=== PATIENT | female | born 1985 | race Two or more races ===

== ENCOUNTER → 2020-05-13 15:22 | Outpatient (BNV) | payer OTHER, SELFPAY | PROVIDERS: PCP Internal Medicine; Visit Provider Internal Medicine Medical Oncology | DX: D47.2 Monoclonal gammopathy (principal) | CPT/HCPCS: 99213; 99214 ==

== ENCOUNTER → 2020-06-21 13:48 | Outpatient (BNVA) | payer OTHER, SELFPAY | PROVIDERS: PCP Internal Medicine; Visit Provider Advanced Practice Midwife | DX: Z76.89 Persons encountering health services in other specified circumstances (principal) ==

== ENCOUNTER 2020-10-12 15:39 | Outpatient (REF) | payer OTHER, SELFPAY ==
[2020-10-12 18:24] LABS: C Reactive Protein 0.43 mg/dL (< or = 0.50)
[2020-10-14 13:22] LABS: Transglutaminase Ab IgG 2 U/mL; Transglutaminase IgA 1 U/mL
[2020-10-14 13:46] LABS: H Pylori Breath Test NOT DETECTED (NOT DETECTED)
[2020-10-14 21:46] LABS: Gliadin Deamidated IgA Ab 12 Units; Gliadin Deamidated IgG Ab 2 Units
== END 2020-10-12 15:40 | disposition home or self-care (01) ==
LOC: HO.LAB 15:39
PROVIDERS: PCP Internal Medicine; Visit Provider Nurse Practitioner
DX: K58.0 Irritable bowel syndrome with diarrhea (principal); R10.33 Periumbilical pain; D47.2 Monoclonal gammopathy; E66.9 Obesity, unspecified; E53.8 Deficiency of other specified B group vitamins; E78.00 Pure hypercholesterolemia, unspecified; E55.9 Vitamin D deficiency, unspecified; Z86.19 Personal history of other infectious and parasitic diseases; Z68.29 Body mass index [BMI] 29.0-29.9, adult
CPT/HCPCS: 36415; 83013; 83516; 86140; 99212

== ENCOUNTER 2020-10-21 08:00 | Outpatient (REF) | payer OTHER, SELFPAY ==
--- NOTE | ~2020-10-21 | US_ITS ---
EXAMINATION: US ABDOMEN COMPLETE CLINICAL INFORMATION: Irritable bowel syndrome with diarrhea, abdominal pain. COMPARISON: None TECHNIQUE: Real-time imaging of the abdominal viscera. FINDINGS: PANCREAS: The visualized head and body of the pancreas appears unremarkable. Remainder of the pancreas is obscured by bowel gas. ABDOMINAL AORTA: The proximal, mid, and distal segments are normal in caliber. INFERIOR VENA CAVA: Visualized portions are normal. LIVER: Diffuse increased parenchymal echogenicity. The liver is normal in size. The liver contour is normal. No focal hepatic lesion. There is no intrahepatic biliary duct dilatation seen. GALLBLADDER: Normal. The gallbladder is physiologically distended without evidence of stones, sludge, polyps, wall thickening or pericholecystic fluid. COMMON BILE DUCT: Normal in caliber measuring 0.3 cm in diameter. RIGHT KIDNEY: Normal. No hydronephrosis. No renal calculi or focal parenchymal lesions. The kidney measures 10.1 cm in maximum dimension. LEFT KIDNEY: Normal. No hydronephrosis. No renal calculi or focal parenchymal lesions. The kidney measures 9.8 cm in maximum dimension. SPLEEN: Normal. The spleen measures 10.9 cm in maximum dimension. FREE FLUID: None. US/US abdomen complete IMPRESSION: 1. There is generalized increase in hepatic echotexture, consistent with fatty infiltration or hepatocellular disease. Please correlate clinically. No focal hepatic mass or intrahepatic biliary duct dilatation is seen. 2. Otherwise unremarkable study.
== END 2020-10-21 08:01 | disposition home or self-care (01) ==
LOC: HO.US 08:00
PROVIDERS: PCP Internal Medicine; Visit Provider Nurse Practitioner
DX: K58.0 Irritable bowel syndrome with diarrhea (principal); R10.33 Periumbilical pain
CPT/HCPCS: 76700

== ENCOUNTER → 2020-11-08 09:18 | Outpatient (BNVA) | payer OTHER, SELFPAY | PROVIDERS: PCP Internal Medicine; Visit Provider Nurse Practitioner ==

== ENCOUNTER 2021-06-30 10:31 | Outpatient (REF) | payer OTHER, SELFPAY ==
[2021-06-30 12:21] LABS: Syphilis Screen Nonreactive (Nonreactive)
[2021-06-30 12:25] LABS: HBc Num1 0.12 S/CO (0.00-0.79); Hepatitis B Core Antibody Nonreactive (Nonreactive); ~HepC Num1 0.22 S/CO (0.00-0.79); ~Hepatitis C Antibody Nonreactive (Nonreactive)
[2021-06-30 12:56] LABS: HIV AB/AG Nonreactive (Nonreactive); HIV Num 1 0.07 S/CO (0.00-0.99)
[2021-06-30 16:34] LABS: CT PCR NOT DETECTED (Not Detect.); NG PCR NOT DETECTED (Not Detect.)
[2021-07-01 16:00] LABS: BV Int Neg Control Negative (Negative); BV Int Pos Control Positive (Positive)
== END 2021-06-30 10:32 | disposition home or self-care (01) ==
LOC: HO.LAB 10:31
PROVIDERS: PCP Internal Medicine; Visit Provider Advanced Practice Midwife
DX: Z01.411 Encounter for gynecological examination (general) (routine) with abnormal findings (principal); Z11.4 Encounter for screening for human immunodeficiency virus [HIV]; N89.8 Other specified noninflammatory disorders of vagina; Z20.2 Contact with and (suspected) exposure to infections with a predominantly sexual mode of transmission; F43.9 Reaction to severe stress, unspecified
CPT/HCPCS: 36415; 86704; 86780; 86803; 87389; 87480; 87491; 87510; 87591; 87660

== ENCOUNTER 2021-07-25 14:40 | Outpatient (REF) | payer OTHER, SELFPAY ==
[2021-07-25 15:45] LABS: MANUAL DIFF FLAG NO
[2021-07-25 16:00] LABS: Basophils Percent Auto 0.4 % (0-2); Eosinophils Absolute Auto 0.1 X10*3/uL (0.0-0.4); Eosinophils Percent Auto 0.6 % (0-4); Hemoglobin 13.6 g/dl (12.0-16.0); Imm Gran Abs Auto 0.02 X10*3/uL (0.00-0.03); Imm Gran Pct Auto 0.2 % (0.0-0.4); Lymphocytes Absolute Auto 3.6 X10*3/uL (1.2-4.9); Lymphocytes Percent Auto 35.7 % (20-40); Mean Corpuscular HGB Conc 33.2 g/dl (31.0-35.0); Mean Corpuscular Volume 90.3 fL (80.0-98.0); Mean Platelet Volume 10.5 fL (9.4-12.3); Monocytes Absolute Auto 0.5 X10*3/uL (0.1-1.2); Monocytes Percent Auto 4.6 % (2-11); Neutrophils Absolute Auto 5.9 x10*3/uL (2.0-8.3); Neutrophils Percent Auto 58.5 % (45-73); Platelet Count 311 X10*3/uL (160-400); Red Blood Count 4.54 X10*6/uL (4.20-5.50); Red Cell Distribution Width 12.4 % (11.0-16.0); White Blood Count 10.1 X10*3/uL (4.8-10.8)
[2021-07-25 16:28] LABS: Alanine Aminotransferase 12 U/L (0-31); Albumin Level 4.3 g/dL (3.5-5.0); Alkaline Phosphatase 72 U/L (39-117); Aspartate Amino Transferase 15 U/L (5-31); Bilirubin Direct 0.3 mg/dL (0.0-0.5); Bilirubin Total 0.7 mg/dL (0.0-1.0); Gamma Glutamyl Transpeptidase 21 U/L (7-33); Total Protein 8.5 g/dL (6.5-8.0)
[2021-07-25 16:48] LABS: Ferritin 31 ng/mL (10-122)
[2021-07-26 13:11] LABS: Anti Nuclear Antibody Screen NEGATIVE (NEGATIVE)
[2021-07-27 15:01] LABS: Mitochondrial Antibodies NEGATIVE (NEGATIVE)
[2021-07-28 10:55] LABS: Alpha Fetoprotein 1.4 ng/mL
[2021-07-29 23:31] LABS: Smooth Muscle Antibody <20 U (<20)
== END 2021-07-25 14:41 | disposition home or self-care (01) ==
LOC: HO.LAB 14:40
PROVIDERS: PCP Internal Medicine; Referring Provider Internal Medicine; Visit Provider Nurse Practitioner
DX: K75.81 Nonalcoholic steatohepatitis (NASH) (principal); K58.0 Irritable bowel syndrome with diarrhea; R10.33 Periumbilical pain
CPT/HCPCS: 36415; 80076; 82105; 82728; 82977; 85025; 86015; 86038; 86039; 86255; 86256; 99212

== ENCOUNTER 2021-09-18 13:40 | Outpatient (REF) | payer OTHER, SELFPAY ==
--- NOTE | 2021-09-18 13:49 | ECG_ITS ---
Test Reason : PREOP Blood Pressure : / mmHG Vent. Rate : 085 BPM Atrial Rate : 085 BPM P-R Int : 154 ms QRS Dur : 086 ms QT Int : 364 ms P-R-T Axes : 059 021 048 degrees QTc Int : 433 ms Normal sinus rhythm Normal ECG No previous ECGs available Referred By: Sancho Jc Electronically Signed By:DASHA YUN
[2021-09-18 13:51] LABS: MANUAL DIFF FLAG NO
[2021-09-18 14:14] LABS: Basophils Percent Auto 0.4 % (0-2); Eosinophils Percent Auto 0.2 % (0-4); Hematocrit 40.6 % (37.0-47.0); Hemoglobin 13.4 g/dl (12.0-16.0); Imm Gran Abs Auto 0.05 X10*3/uL (0.00-0.03); Imm Gran Pct Auto 0.5 % (0.0-0.4); Lymphocytes Absolute Auto 3.1 X10*3/uL (1.2-4.9); Lymphocytes Percent Auto 28.1 % (20-40); Mean Platelet Volume 10.9 fL (9.4-12.3); Monocytes Absolute Auto 0.6 X10*3/uL (0.1-1.2); Monocytes Percent Auto 5.3 % (2-11); Neutrophils Absolute Auto 7.2 x10*3/uL (2.0-8.3); Neutrophils Percent Auto 65.5 % (45-73); Platelet Count 281 X10*3/uL (160-400); Red Blood Count 4.46 X10*6/uL (4.20-5.50); Red Cell Distribution Width 12.3 % (11.0-16.0); Retic HGB Equivalent 33.4 pg (30.0-35.0); Reticulocyte Percent 1.6 % (0.5-1.8); White Blood Count 10.9 X10*3/uL (4.8-10.8)
[2021-09-18 14:17] LABS: Prothrombin Time 11.9 SEC (9.9-13.0)
[2021-09-18 14:45] LABS: Alanine Aminotransferase 11 U/L (0-31); Albumin Level 4.3 g/dL (3.5-5.0); Alkaline Phosphatase 76 U/L (39-117); Anion Gap 12 (12-20); Aspartate Amino Transferase 12 U/L (5-31); Bilirubin Total 1.4 mg/dL (0.0-1.0); Blood Urea Nitrogen 10 mg/dL (9-16); Calcium 9.6 mg/dL (8.4-10.2); Carbon Dioxide 25 mmol/L (22-29); Chloride 102 mmol/L (96-108); Cholesterol 195 mg/dL; Estimated Glomerular Filt Rate > 60; Glucose Random 86 mg/dL (60-115); HDL Cholesterol 42 mg/dL; Iron 58 mcg/dL (30-160); LDL Cholesterol Calculated 132 mg/dl; Percent Iron Saturation 16 % (15-50); Potassium 4.4 mmol/L (3.3-5.1); Sodium 135 mmol/L (135-145); Total Iron Binding Capacity 359 mcg/dL (228-428); Total Protein 8.4 g/dL (6.5-8.0); Triglycerides 109 mg/dL; Unsaturated Iron Binding 301 ug/dL
[2021-09-18 15:08] LABS: Ferritin 29 ng/mL (10-122); Free T4 (Free Thyroxine) 0.94 ng/dL (0.71-1.85); HCG Quantitative < 2 mIU/mL; Thyroid Stimulating Hormone 2.21 uIU/mL (0.32-4.0); Vitamin D 25-OH Total 36.3 ng/mL (>30)
[2021-09-18 15:25] LABS: Folate 19.3 ng/mL (> or = 4.0); Vitamin B12 604 pg/mL (200-900)
== END 2021-09-18 13:41 | disposition home or self-care (01) ==
LOC: HO.LAB 13:40
PROVIDERS: PCP Internal Medicine; Visit Provider Internal Medicine
DX: Z01.818 Encounter for other preprocedural examination (principal); E78.00 Pure hypercholesterolemia, unspecified; D47.2 Monoclonal gammopathy
CPT/HCPCS: 36415; 80053; 80061; 82306; 82607; 82728; 82746; 83540; 84439; 84443; 84702; 85025; 85045; 85610; 85730; 93005

== ENCOUNTER 2021-09-19 09:00 | Outpatient (REF) | payer OTHER, SELFPAY ==
--- NOTE | ~2021-09-19 | US_ITS ---
EXAMINATION: US COMPLETE ABDOMEN WITH LIVER ELASTOGRAPHY CLINICAL INFORMATION: FINLEY COMPARISON: Previous pelvic ultrasound September 2020 TECHNIQUE: Real-time imaging of the abdominal viscera. Noninvasive ultrasound liver fibrosis assessment is performed using Georgette ElastPQ point quantification shear wave elastography (2D-SWE) with a C5-2 MHz transducer. Multiple elastography samples are obtained. FINDINGS: PANCREAS: Normal. ABDOMINAL AORTA: The proximal, middle, and distal aortic segments are normal in caliber. INFERIOR VENA CAVA: Visualized portions are normal. LIVER: The liver demonstrates normal size, contour and echogenicity. There is a 1 x 1.3 x 1.1 cm cyst high in the left lobe. No other focal lesion or intrahepatic biliary duct dilatation. The right lobe measures 15.9 cm in length. The left lobe measures 12 cm in length. Portal flow is normal/hepatopedal Shear wave liver elastography median stiffness is 1.5 m/s (reference: normal median stiffness is 1.3 m/s or less). IQR/median stiffness to assess sampling precision is 0.08 (reference: good quality data set is IQR/median stiffness of 0.15 or less). GALLBLADDER: Normal. The gallbladder is physiologically distended without evidence of stones, sludge, polyps, wall thickening or pericholecystic fluid. COMMON BILE DUCT: Normal in caliber measuring 0.3 cm in diameter. RIGHT KIDNEY: Normal. No hydronephrosis. No renal calculi or focal parenchymal lesions. The kidney measures 10 cm in maximum dimension. LEFT KIDNEY: Normal. No hydronephrosis. No renal calculi or focal parenchymal lesions. The kidney measures 10.4 cm in maximum dimension. SPLEEN: There are 2 small echogenic lesions in the spleen measuring 9 x 9 x 12 mm and 10 x 9 x 7 mm. These were not appreciated on previous exam. Appearance is questionable for small hemangiomas. The spleen measures 10.7 cm in maximum dimension. FREE FLUID: None. US/US abdomen comp w elastography IMPRESSION: 1. Impression: Small liver cyst. 2 small hyperechoic splenic lesions questionable for hemangiomas. 2. Liver elastography: Adequate liver sampling. In the absence of other known clinical signs, rules out compensated advanced chronic liver disease. REFERENCE: Society of Radiologists in Ultrasound Liver Stiffness Thresholds (2020): LIVER STIFFNESS THRESHOLDS: *Liver Stiffness equal or less than 1.3 m/s: High probability of being normal. *Liver Stiffness less than 1.7 m/s: In the absence of other known clinical signs, rules out compensated advanced chronic liver disease. *Liver Stiffness 1.7-2.1 m/s: Suggestive of compensated advanced chronic liver disease but need further test for confirmation. *Liver Stiffness over 2.1 m/s: Rules in compensated advanced chronic liver disease. *Liver Stiffness over 2.4 m/s: Suggestive of clinically significant portal hypertension. QUALITY OF DATA SET: *IQR/Median value equal or less than 0.15 implies a quality data set. *IQR/Median value over 0.15 implies a poor quality data set. SIGNIFICANT CHANGE FROM PRIOR EXAM: Significant change if liver stiffness measurement is 10% or greater from prior exam. OTHER CONSIDERATIONS: The stage of liver fibrosis may be overestimated in the setting of acute hepatitis, liver inflammation, elevated liver function tests, hepatic vascular congestion, obstructive cholestasis, non-fasting state, and infiltrative diseases such as amyloidosis and lymphoma. In some patients with NAFLD, the liver stiffness thresholds for compensated advanced chronic liver disease may be lower. In causes other than viral hepatitis and NAFLD, liver stiffness thresholds are not well established.
== END 2021-09-19 09:01 | disposition home or self-care (01) ==
LOC: HO.US 09:00
PROVIDERS: Visit Provider Nurse Practitioner
DX: M75.81 Other shoulder lesions, right shoulder (principal)
CPT/HCPCS: 76705; 76981

== ENCOUNTER → 2021-09-26 13:30 | Outpatient (BNVA) | payer OTHER, SELFPAY | PROVIDERS: PCP Internal Medicine; Referring Provider Internal Medicine; Visit Provider Nurse Practitioner | DX: K75.81 Nonalcoholic steatohepatitis (NASH) (principal); E80.4 Gilbert syndrome | CPT/HCPCS: 99212 ==

== ENCOUNTER 2022-04-04 12:54 | Outpatient (REF) | payer OTHER, SELFPAY ==
[2022-04-04 13:15] LABS: MANUAL DIFF FLAG NO
[2022-04-04 13:59] LABS: Immature Retic Fraction 4.5 % (3.0-15.9); Retic HGB Equivalent 34.5 pg (30.0-35.0); Reticulocyte Percent 1.4 % (0.5-1.8); Reticulocytes Absolute 0.064 X10*6/uL (0.026-0.095)
[2022-04-04 14:00] LABS: Basophils Percent Auto 0.4 % (0-2); Eosinophils Percent Auto 0.4 % (0-4); Hematocrit 40.2 % (37.0-47.0); Hemoglobin 13.2 g/dl (12.0-16.0); Imm Gran Abs Auto 0.02 X10*3/uL (0.00-0.03); Imm Gran Pct Auto 0.3 % (0.0-0.4); Lymphocytes Absolute Auto 2.4 X10*3/uL (1.2-4.9); Mean Corpuscular HGB Conc 32.8 g/dl (31.0-35.0); Mean Corpuscular Hemoglobin 28.9 pg (27.0-33.0); Mean Corpuscular Volume 88.2 fL (80.0-98.0); Mean Platelet Volume 10.6 fL (9.4-12.3); Monocytes Absolute Auto 0.3 X10*3/uL (0.1-1.2); Monocytes Percent Auto 3.6 % (2-11); Neutrophils Percent Auto 64.3 % (45-73); Platelet Count 300 X10*3/uL (160-400); Red Blood Count 4.56 X10*6/uL (4.20-5.50); Red Cell Distribution Width 12.8 % (11.0-16.0); White Blood Count 7.7 X10*3/uL (4.8-10.8)
[2022-04-04 14:11] LABS: Alanine Aminotransferase 17 U/L (0-31); Albumin Level 3.9 g/dL (3.5-5.0); Alkaline Phosphatase 78 U/L (39-117); Anion Gap 12 (12-20); Aspartate Amino Transferase 18 U/L (5-31); Bilirubin Total 0.5 mg/dL (0.0-1.0); Blood Urea Nitrogen 9 mg/dL (9-16); Calcium 9.2 mg/dL (8.4-10.2); Carbon Dioxide 28 mmol/L (22-29); Chloride 102 mmol/L (96-108); Cholesterol 179 mg/dL; Estimated Glomerular Filt Rate > 60; Glucose Random 90 mg/dL (60-115); HDL Cholesterol 41 mg/dL; Iron 44 mcg/dL (30-160); LDL Cholesterol Calculated 119 mg/dl; Percent Iron Saturation 13 % (15-50); Potassium 4.4 mmol/L (3.3-5.1); Sodium 138 mmol/L (135-145); Total Iron Binding Capacity 333 mcg/dL (228-428); Total Protein 8.2 g/dL (6.5-8.0); Triglycerides 95 mg/dL; Unsaturated Iron Binding 289 ug/dL
[2022-04-04 14:14] LABS: Alanine Aminotransferase 20 U/L (0-31); Alkaline Phosphatase 78 U/L (39-117); Anion Gap 14 (12-20); Aspartate Amino Transferase 21 U/L (5-31); Bilirubin Total 0.4 mg/dL (0.0-1.0); Blood Urea Nitrogen 10 mg/dL (9-16); Calcium 9.1 mg/dL (8.4-10.2); Carbon Dioxide 27 mmol/L (22-29); Chloride 101 mmol/L (96-108); Estimated Glomerular Filt Rate > 60; Glucose Random 90 mg/dL (60-115); Potassium 4.1 mmol/L (3.3-5.1); Sodium 138 mmol/L (135-145); Total Protein 8.3 g/dL (6.5-8.0)
[2022-04-04 14:34] LABS: Ferritin 26 ng/mL (10-122); Free T4 (Free Thyroxine) 0.97 ng/dL (0.71-1.85); Thyroid Stimulating Hormone 1.65 uIU/mL (0.32-4.0)
[2022-04-04 14:49] LABS: Folate 17.9 ng/mL (> or = 4.0); Vitamin B12 558 pg/mL (200-900)
[2022-04-09 13:37] LABS: Kappa Light Chain, Free Serum 63.7 mg/L (3.3-19.4); Kappa/Lambda Lt Ch Free Ratio 2.79 (0.26-1.65); Lambda Light Chain, Free Serum 22.8 mg/L (5.7-26.3)
[2022-04-11 10:26] LABS: IgA 278 mg/dL (47-310); IgG 2730 mg/dL (600-1640); IgM 106 mg/dL (50-300)
== END 2022-04-04 12:55 | disposition home or self-care (01) ==
LOC: HO.LAB 12:54
PROVIDERS: Internal Medicine Medical Oncology; PCP Internal Medicine; Visit Provider Internal Medicine
DX: N92.6 Irregular menstruation, unspecified (principal); E78.00 Pure hypercholesterolemia, unspecified; D47.2 Monoclonal gammopathy
CPT/HCPCS: 36415; 80053; 80061; 82607; 82728; 82746; 82784; 83521; 83540; 84439; 84443; 85025; 85045; 86334

== ENCOUNTER 2022-07-03 14:59 | Outpatient (REF) | payer OTHER, SELFPAY ==
[2022-07-10 16:30] LABS: HPV mRNA E6/E7 rflx Not Detected (Not Detected)
== END 2022-07-03 15:00 | disposition home or self-care (01) ==
LOC: HO.LNP 14:59
PROVIDERS: PCP Internal Medicine; Visit Provider Advanced Practice Midwife
DX: Z01.419 Encounter for gynecological examination (general) (routine) without abnormal findings (principal); Z11.51 Encounter for screening for human papillomavirus (HPV)
CPT/HCPCS: 87624; 88142

== ENCOUNTER 2022-07-03 16:05 | Outpatient (REF) | payer OTHER, SELFPAY ==
[2022-07-04 06:43] LABS: Syphilis Screen Nonreactive (Nonreactive)
[2022-07-04 08:05] LABS: HBc Num1 0.15 S/CO (0.00-0.79); HIV AB/AG Nonreactive (Nonreactive); HIV Num 1 0.06 S/CO (0.00-0.99); Hepatitis B Core Antibody Nonreactive (Nonreactive); ~HepC Num1 0.33 S/CO (0.00-0.79); ~Hepatitis C Antibody Nonreactive (Nonreactive)
[2022-07-04 09:32] LABS: CT PCR NOT DETECTED (Not Detect.); NG PCR NOT DETECTED (Not Detect.)
== END 2022-07-03 16:06 | disposition home or self-care (01) ==
LOC: HO.LAB 16:05
PROVIDERS: PCP Internal Medicine; Visit Provider Advanced Practice Midwife
DX: Z11.4 Encounter for screening for human immunodeficiency virus [HIV] (principal); Z11.3 Encounter for screening for infections with a predominantly sexual mode of transmission; Z20.2 Contact with and (suspected) exposure to infections with a predominantly sexual mode of transmission
CPT/HCPCS: 0353U; 36415; 86704; 86780; 86803; 87389

== ENCOUNTER 2022-10-26 08:42 | Outpatient (REF) | payer OTHER, SELFPAY ==
[2022-10-26 13:40] LABS: CT PCR NOT DETECTED (Not Detect.); NG PCR NOT DETECTED (Not Detect.)
[2022-10-27 14:19] LABS: BV Int Neg Control Negative (Negative); BV Int Pos Control Positive (Positive)
== END 2022-10-26 08:43 | disposition home or self-care (01) ==
LOC: HO.LNP 08:42
PROVIDERS: PCP Internal Medicine; Visit Provider Advanced Practice Midwife
DX: Z20.2 Contact with and (suspected) exposure to infections with a predominantly sexual mode of transmission (principal)
CPT/HCPCS: 0353U; 87480; 87510; 87660; 99212

== ENCOUNTER 2022-12-13 17:00 | Outpatient (RCR) | payer OTHER, SELFPAY ==
--- NOTE | 2022-10-02 18:08 | MHC.PT.EP ---
[facility] [place] [facility] [place] [facility] [place] [facility] [address] Leah Hicks [address] [phone] F: [phone] F: [phone] F: [phone] F: [phone] Physical Therapy Plan of Care Date of Evaluation: Date of Surgery: Diagnosis: low back pain Assessment: Patient is a 37 y.o. female who is referred to PT by Dr. Sancho Jc MD, with Dx of low back pain. PT diagnosis is low back pain and thoracic pain from poos postures and muscle imbalances. Patient impairments include pain, limited ROM, weakness, poor posture and positioning. Patient current functional limitations are prolonged standing to do dishes, unable to lie supine, prolonged sitting, cleaning, bending down, driving. Patient will benefit from skilled PT to address aforementioned impairments and functional limitations to meet established goals. Frequency and Duration: The patient will be seen 2x/week for 4 weeks Short Term Goals: 2 weeks Patient demonstrates consistency and independence with HEP to self manage symptoms. Patient presents with self correction of poor posture without cues to reduce pain 2/10. Jail Goals: 4 weeks Patient presents with increased lumbar extensino 20 degrees to be able to stand to do dishes. Patient presents with incrased middle trapezius strength 4/5 to be able to sit for prolonged time. Treatment Plan: Modalities to reduce pain, spasms and effusion. Manual therapy to restore motion and function. Therapeutic exercise to improve strength and flexibility. Neuromuscular re-education for posture and balance. Therapeutic activities to return to functional activities of daily living. Electronically signed by: Anila Ansari, PT, DPT Please sign and return to therapist. Thank you for your referral.
--- NOTE | 2023-01-18 13:38 | MHC.PT.DC ---
[facility] [place] [facility] [place] Office [place] Office [address] Leah Hicks [address] [phone] F: [phone] F: [phone] F: [phone] F: [phone] Physical Therapy Discharge Report Diagnosis: low back pain Date of Surgery: Date of Evaluation: 10/02/22 Date of Discharge: 01/18/23 Treatments to Date: 8 Cancellations to Date: 3 No Shows to Date: 2 Discharge Status: Improved Function Independent with HEP Patient Elected to Stop Discharge Summary: Patient is independent with HEP and showed improvement in her symptoms with PT sessions but ceased attending on her own accord. Electronically signed by: Anila Ansari, PT, DPT Please sign and return to therapist. Thank you for your referral.
== END 2023-01-18 13:38 | disposition home or self-care (01) ==
LOC: HO.PT 17:00
PROVIDERS: PCP Internal Medicine; Visit Provider Internal Medicine
DX: M54.50 Low back pain, unspecified (principal)
CPT/HCPCS: 97110; 97140; 97161; 97530

== ENCOUNTER 2023-04-10 09:53 | Outpatient (AMB) | payer OTHER, SELFPAY ==
--- NOTE | 2023-04-10 10:05 | MHC.PC.OV ---
Vital Signs 04/10/23 10:07 Height 5 ft 5 in Weight 165 lb BMI 27.5 BP 122/78 Blood Pressure Location Lt brachial Position Sitting Pulse 83 Pulse Source Pulse Oximeter Pulse Oximetry (%) 99 Oxygen Delivery Method Room Air Intake Visit Reasons: Urinating too much and always feeling tired. Intake Note: patient here for frequent urination mostly at night, tiredness Chief Green Officer Required: No Accompanied by: Self / Same As Patient Allergies No Known Allergies Allergy (Verified 04/10/23 10:13) Tobacco use date assessed: 07/05/22 Dental Screening Dental Screen Date: 04/10/23 Did you have a dental visit in the last 12 months?: Yes Did you have a dental problem in the last 6 months where you did not have access to dental care?: No Was dental information given to patient?: Patient has dentist HPI Urinating too much and always feeling tired. 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 Patient had some low back pain and sent for physical therapy. Pap smear is up-to-date patient comes in for an acute problem frequency 4 x a night, no burning , . tired this has been going on for a month, no thristy a lot, feels dry, no cough, no bowel symptoms. , no cogested, runny nose, patient has tonsillar hypertrophy and occasional have tonsil stones and wants to have ear nose throat referral otherwise with feeling tiredness would like to have some workup on blood count as well as iron. She does have pink palpebral conjunctiva. [facility] Medical History B12 deficiency Cervical dysplasia MARCO II (cervical intraepithelial neoplasia II) Condyloma Exposure to chlamydia Hypercholesterolemia Insomnia Overweight (BMI 25.0-29.9) Rheumatoid factor positive Vitamin D deficiency Surgical History H/O cosmetic surgery Hx of tubal ligation History of loop electrical excision procedure (LEEP) Family History Father Liver cancer Hep C w/o coma, chronic Diabetes mellitus Family history of thyroid problem Paternal Aunt Breast cancer Maternal Grandmother Myocardial infarct Mother Osteoarthritis Gastritis Family/Other Breast cancer Social History Household Members: Children Housing: Apartment Are you a primary careers adviser to a significant other at home: No Do you presently have visiting nurse or other home services: No Alcohol intake: former Patient Tobacco Use Status: Never used Tobacco e-Cigarette/Vaping Use: Never Used Second Hand Smoke Exposure: No service: No Current occupational status: employed 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 Tommy Berg, Monica Ballesteros, Chris Nagy and colleagues, with an educational chepe from [employer]. Physical exam (Primary Care) Vital Signs: Last Vital Signs Pulse 83 04/10/23 10:07 BP 122/78 04/10/23 10:07 Pulse Ox 99 04/10/23 10:07 Oxygen Delivery Method Room Air 04/10/23 10:07 BMI result Body Mass Index 27.5 Tobacco/Smoking Status: Tobacco use Status Tobacco use date assessed 07/05/22 04/10/23 10:05 Patient Tobacco Use Status Never used Tobacco 04/10/23 10:05 e-Cigarette/Vaping Use Never Used 04/10/23 10:05 Thrive Assessment: Date of Thrive Assessment Date Thrive assessed 07/05/22 04/10/23 10:05 Const General: alert; No acute distress Eyes Conjunctivae: conjunctivae normal Resp Auscultation: clear to auscultation bilaterally Cardio Rate: regular rate Rhythm: regular rhythm GI Inspection: Yes normal to inspection Extrem General: Yes normal to inspection and No edema Office Procedures Flu Questionnaire Does the patient have a severe egg allergy?: No Does the patient have severe life threatening allergies?: No Does the patient have a fever or illness today?: No Has the patient ever had Guillain-Roll Syndrome?: No Has the patient ever had any past reaction to a flu shot?: No Results AMB Urinalysis, Automated UA Leukoctes 0 Anusha/uL Last Edit by DESTIN Real on 04/10/23 10:23 UA Nitrite Negative Last Edit by Salena Ellis, EDYA on 04/10/23 10:23 UA Urobilinogen 0.2 mg/dL Last Edit by Salena Ellis, RMA on 04/10/23 10:23 UA Protein 0 mg/dL Last Edit by Salena Ellis, RMA on 04/10/23 10:23 UA pH 6.0 Last Edit by Salena Ellis, RMA on 04/10/23 10:23 UA Blood 0 Hemanth/uL Last Edit by Salena Ellis, RMA on 04/10/23 10:23 UA Specific [place] 1.025 Last Edit by Salena Ellis, RMA on 04/10/23 10:23 UA Ketone Negative Last Edit by Salena Ellis, RMA on 04/10/23 10:23 UA Bilirubin 0 mg/dL Last Edit by Salena Ellis, RMA on 04/10/23 10:23 UA Glucose 0 mg/dL Last Edit by Salena Ellis, EDYA on 04/10/23 10:23 Immunizations flu vacc [id number] 6mos up(PF) 60 mcg(15 mcgx4)/0.5 mL IM syringe Performing Provider: Sancho Jc MD Performing Location: [facility] Administered by: DESTIN Real on 04/10/23 10:20 Dose Route Admin Location Dispensed Lot Number Expiration Date NDC Rail Signal Designer 0.5 mL IM Left Deltoid 0.5 mL [id number] 12/22/23 [id number] [employer] VIS Given Date VIS Provided VIS Publication Date 04/10/23 Single Vaccine 21 Eligibility Eligibility Date Funding Source Not VFC Eligible 04/10/23 Private Results Reviewed Results Reviewed: Laboratory Last Values Urine pH (Auto) 6.0 04/10/23 10:16 Specific [place] (Auto) 1.025 04/10/23 10:16 Urine Protein (Auto) 0 mg/dL 04/10/23 10:16 Glucose (UA)(Auto) 0 mg/dL 04/10/23 10:16 Urine Ketones (Auto) Negative 04/10/23 10:16 Urine Blood (Auto) 0 Hemanth/uL 04/10/23 10:16 Urine Nitrite (Auto) Negative 04/10/23 10:16 Urine Bilirubin (Auto) 0 mg/dL 04/10/23 10:16 Urine Urobilinogen (Auto) 0.2 mg/dL 04/10/23 10:16 Leukocyte Esterase (Auto) 0 Anusha/uL 04/10/23 10:16 Assessment and Plan Assessment & Plan (1) Frequency of micturition: Code(s): R35.0 - Frequency of micturition Plan: Urinalysis results came back negative. (2) Overweight (BMI 25.0-29.9): Code(s): E66.3 - Overweight Plan: Diet and exercise (3) Tiredness: Code(s): R53.83 - Other fatigue Plan: Workup requested (4) Tonsillar hypertrophy: Code(s): J35.1 - Hypertrophy of tonsils Plan: Ear nose and throat referral done Orders: Orders Free T4 (Free Thyroxine) Today R35.0 - Frequency of micturition Lipid Panel Today E78.00 - Pure hypercholesterolemia, unspecified, R35.0 - Frequency of micturition Reticulocyte Count Today R35.0 - Frequency of micturition C Reactive Protein Today R35.0 - Frequency of micturition Hemoglobin A1c Today R35.0 - Frequency of micturition Vitamin D 25-OH Total Today E78.00 - Pure hypercholesterolemia, unspecified AMB Urinalysis Automated Today R35.0 - Frequency of micturition Influenza [id number] Immunization Today Z23 - Encounter for immunization Comprehensive Met. Panel Today R35.0 - Frequency of micturition Complete Blood Count Auto Diff Today R35.0 - Frequency of micturition Ferritin Today R35.0 - Frequency of micturition Thyroid Stimulating Hormone Today R35.0 - Frequency of micturition Vitamin B12 and Folate Today R35.0 - Frequency of micturition IRON PROFILE Today R35.0 - Frequency of micturition Erythrocyte Sedimentation Rate Today R35.0 - Frequency of micturition Referrals Ear/Nose/Throat Referral J35.1 - Hypertrophy of tonsils Coding Level of Care Code Est Pt Level 4 (03389) Diagnoses Frequency of micturition R35.0 Overweight (BMI 25.0-29.9) E66.3 Tiredness R53.83 Tonsillar hypertrophy J35.1
[2023-04-10 10:07] VITALS: BP 122/78; PULSE 83; O2SAT 99; BMI 27.5
== END 2023-04-10 10:44 | disposition home or self-care (01) ==
PROVIDERS: PCP Internal Medicine; Visit Provider Internal Medicine
DX: Z23 Encounter for immunization (principal); R35.0 Frequency of micturition; R53.83 Other fatigue; J35.1 Hypertrophy of tonsils; E66.3 Overweight
CPT/HCPCS: 81003; 90471; 90686; 99214

== ENCOUNTER 2023-04-10 10:51 | Outpatient (REF) | payer OTHER, SELFPAY ==
[2023-04-10 11:11] LABS: MANUAL DIFF FLAG NO
[2023-04-10 11:33] LABS: Basophils Percent Auto 0.4 % (0-2); Eosinophils Absolute Auto 0.1 X10*3/uL (0.0-0.4); Eosinophils Percent Auto 0.6 % (0-4); Hematocrit 39.5 % (37.0-47.0); Hemoglobin 13.3 g/dl (12.0-16.0); Imm Gran Abs Auto 0.03 X10*3/uL (0.00-0.03); Imm Gran Pct Auto 0.4 % (0.0-0.4); Immature Retic Fraction 6.5 % (3.0-15.9); Lymphocytes Absolute Auto 2.3 X10*3/uL (1.2-4.9); Lymphocytes Percent Auto 27.1 % (20-40); Mean Corpuscular HGB Conc 33.7 g/dl (31.0-35.0); Mean Platelet Volume 11.2 fL (9.4-12.3); Monocytes Absolute Auto 0.4 X10*3/uL (0.1-1.2); Monocytes Percent Auto 4.4 % (2-11); Neutrophils Absolute Auto 5.8 x10*3/uL (2.0-8.3); Neutrophils Percent Auto 67.1 % (45-73); Platelet Count 266 X10*3/uL (160-400); Red Blood Count 4.44 X10*6/uL (4.20-5.50); Red Cell Distribution Width 12.1 % (11.0-16.0); Retic HGB Equivalent 34.9 pg (30.0-35.0); Reticulocyte Percent 1.4 % (0.5-1.8); Reticulocytes Absolute 0.064 X10*6/uL (0.026-0.095); White Blood Count 8.6 X10*3/uL (4.8-10.8)
[2023-04-10 11:35] LABS: Estimated Average Glucose 100 mg/dL; Hemoglobin A1c % 5.1 % (<6.0)
[2023-04-10 12:15] LABS: Alanine Aminotransferase 14 U/L (0-31); Albumin Level 3.8 g/dL (3.5-5.0); Alkaline Phosphatase 69 U/L (39-117); Anion Gap 12 (12-20); Aspartate Amino Transferase 18 U/L (5-31); Bilirubin Total 0.9 mg/dL (0.0-1.0); Blood Urea Nitrogen 11 mg/dL (9-16); C Reactive Protein 0.15 mg/dL (< or = 0.50); Calcium 9.2 mg/dL (8.4-10.2); Carbon Dioxide 27 mmol/L (22-29); Chloride 101 mmol/L (96-108); Cholesterol 184 mg/dL (<200); Estimated Glomerular Filt Rate > 60; Glucose Random 94 mg/dL (60-115); HDL Cholesterol 39 mg/dL (>40); Iron 108 mcg/dL (30-160); LDL Cholesterol Calculated 119 mg/dL (<100); Percent Iron Saturation 38 % (15-50); Potassium 4.4 mmol/L (3.3-5.1); Sodium 136 mmol/L (135-145); Total Iron Binding Capacity 286 mcg/dL (228-428); Total Protein 8.3 g/dL (6.5-8.0); Triglycerides 132 mg/dL (<150); Unsaturated Iron Binding 178 ug/dL
[2023-04-10 12:22] LABS: Erythrocyte Sedimentation Rate 38 MM/HR (0-20)
[2023-04-10 12:33] LABS: Ferritin 33 ng/mL (10-122); Free T4 (Free Thyroxine) 0.77 ng/dL (0.71-1.85); Thyroid Stimulating Hormone 2.23 uIU/mL (0.32-4.0)
[2023-04-10 12:38] LABS: Folate 12.5 ng/mL (> or = 4.0); Vitamin B12 473 pg/mL (200-900)
== END 2023-04-10 10:52 | disposition home or self-care (01) ==
LOC: HO.LAB 10:51
PROVIDERS: PCP Internal Medicine; Visit Provider Internal Medicine
DX: E78.00 Pure hypercholesterolemia, unspecified (principal); R35.0 Frequency of micturition
CPT/HCPCS: 36415; 80053; 80061; 82306; 82607; 82728; 82746; 83036; 83540; 84439; 84443; 85025; 85045; 85652; 86140

== ENCOUNTER 2023-04-18 14:50 | Outpatient (REF) | payer OTHER, SELFPAY | END 2023-04-18 14:51 | disposition home or self-care (01) | LOC: HO.LAB 14:50 | PROVIDERS: PCP Internal Medicine; Visit Provider Internal Medicine Medical Oncology | DX: Z13.89 Encounter for screening for other disorder (principal) ==

== ENCOUNTER 2023-07-10 14:22 | Outpatient (AMB) | payer OTHER, SELFPAY ==
--- NOTE | 2023-07-10 14:24 | MHC.OFFVIS ---
Intake Vital Signs 07/10/23 14:27 Height 5 ft 5 in Weight 165 lb BMI 27.5 BP 106/70 Intake Visit Reasons: Annual Intake Note: 11/25 lgsil 01/25 colpo marco 1 08/26 ascus +hpv 04/28 lgsil 05/29 lgsil 12/28 ascus 12/29 lgsil 07/02 lgsil 12/30 lgsil 07/03 lgsil 03/03 lgsil 11/01 hgsil 01/01 colpo marco 2 02/01 leep marco 2 Corporate Staff Accountant: Corporate Staff Accountant Present (Nicolle) Allergies No Known Allergies Allergy (Verified 07/10/23 14:26) Is last menstrual period known: Yes Last menstrual period: 07/09/23 HPI HPI Comments History of Present Illness Details She is a premenopausal woman presenting for annual examination. Doing well with no concerns. She request a refill on her cold sore medicine, reports she has had a few recurrences recently and is in a wedding this year and does not want have a cold sore during the wedding. She tries to eat healthy and stays active with exercise. Regular monthly menses, once late -39d, home PT-neg. Currently is sexually active. She denies vaginal itching and irritation. STI screening offered; she accepts. Denies family history of breast, ovarian or colon cancer. Last pap smear 2022, negative. History of CINII. [facility] Medical History B12 deficiency Cervical dysplasia MARCO II (cervical intraepithelial neoplasia II) Condyloma Exposure to chlamydia Hypercholesterolemia Insomnia Overweight (BMI 25.0-29.9) Rheumatoid factor positive Vitamin D deficiency Surgical History H/O cosmetic surgery Hx of tubal ligation History of loop electrical excision procedure (LEEP) Family History Father Liver cancer Hep C w/o coma, chronic Diabetes mellitus Family history of thyroid problem Paternal Aunt Breast cancer Maternal Grandmother Myocardial infarct Mother Osteoarthritis Gastritis Family/Other Breast cancer Social History Household Members: Children Housing: Apartment Are you a primary direct care counselor to a significant other at home: No Do you presently have visiting nurse or other home services: No Alcohol intake: former Patient Tobacco Use Status: Never used Tobacco e-Cigarette/Vaping Use: Never Used Second Hand Smoke Exposure: No service: No Current occupational status: employed 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 Gender identity: Female Cognitive needs: No Hearing needs: No Vision needs: No Female Reproductive History Menstrual Age of Menarche: 12 Date of last menstrual period: 07/09/23 control method: permanent sterilization Permanent Sterilization: BTL Total pregnancies: 4 Full term: 3 Number of Living Children: 3 Ab induced: 1 Date of last pap smear: 07/03/22 (neg pap and hpv) History of abnormal pap smear: Yes (see intake note) Review of Systems Const All systems reviewed & are unremarkable except as noted in HPI and below Reports as per HPI Eyes Reports no additional complaints ENT Reports no additional complaints Card Reports no additional complaints Resp Reports no additional complaints GI Reports as per HPI and Reports no additional complaints Reports as per HPI Musc Reports no additional complaints Skin/Breast Reports as per HPI Neuro Reports no additional complaints Psych Reports no additional complaints Endo Reports no additional complaints Jim/Lymph Reports no additional complaints Aller/Immun Reports no additional complaints Physical Exam Const General: cooperative, healthy appearing, no acute distress, well developed and alert Orientation/consciousness: patient oriented x3 HEENT Head: Yes normal to inspection Eyes General: appearance normal, both eyes and all related structures Neck Neck: Yes normal visual inspection Thyroid: Thyroid normal Chest Chest palpation & inspection: normal inspection of the chest and other (no puckering, dimpling, peau de orange, retraction, discharge, masses) Breast/axilla inspection: normal inspection of the breasts Breast/axilla palpation: normal palpation of the breasts Resp Effort & Inspection: normal respiratory effort GI Inspection: Yes normal to inspection Palpation (GI): Soft to palpation Rectal Exam - Female: deferred General: Yes bladder normal to palpation External Female Exam: normal external appearance and normal appearance of the urethra Speculum Exam - Vagina: normal appearance of the vagina, normal palpation and normal vaginal discharge Speculum Exam - Cervix: normal appearance of the cervix and normal palpation Bimanual exam- vagina & uterus: normal bimanual exam, normal palpation, uterine size normal, bladder normal to palpation, normal palpation and non-tender Bimanual Exam- Adnexa, other: no masses Skin General skin exam: no rashes or lesions noted Rashes: no rashes Neuro General: patient oriented x3 Cognition (Neuro): normal cognition Extrem General: Yes normal to inspection Psych Attitude: cooperative Thought process: Normal thought process present Assessment & Plan Assessment & Plan (1) Encounter for well woman exam with routine gynecological exam: Code(s): Z01.419 - Encounter for gynecological examination (general) (routine) without abnormal findings Plan Discussed: Current recommendations for pap smears per ASCCP guidelines. Breast awareness and periodic breast exams. Maintain a healthy lifestyle including a well balanced diet and routine exercise. Reduction of stress management. Use of Valtrex for cold sore therapy. If late menses to do a home test if positive to report to the office immediately due to the risk of ectopic . All of her questions and concerns were addressed to the best of my ability. RTO in one year for annual information security engineer examination. This note is constructed using voice recognition software. While every effort has been made to ensure accuracy, assembler motor vehicle errors may have been included. Orders: Orders Hepatitis B Core Antibody Today Z20.2 - Contact with and (suspected) exposure to infections with a predominantly sexual mode of transmission Syphilis Screen Today Z20.2 - Contact with and (suspected) exposure to infections with a predominantly sexual mode of transmission CT NG by PCR Today Z20.2 - Contact with and (suspected) exposure to infections with a predominantly sexual mode of transmission HIV Ab/Ag Today Z20.2 - Contact with and (suspected) exposure to infections with a predominantly sexual mode of transmission Hepatitis C Antibody Today Z20.2 - Contact with and (suspected) exposure to infections with a predominantly sexual mode of transmission Medications: New valacyclovir (Valtrex) take two tabs twice a day for one day only, may repeat as needed 2,000 mg (2 x 1 gram) PO BID 1 day 40 tabs 1RF Coding Level of Care Code Est Pt Prev Care 18-39y(22383) Diagnoses Encounter for well woman exam with routine gynecological exam Z01.419
[2023-07-10 14:27] VITALS: BP 106/70; BMI 27.5
== END 2023-07-10 16:11 | disposition home or self-care (01) ==
LOC: HO.HWS 14:22
PROVIDERS: PCP Internal Medicine; Visit Provider Advanced Practice Midwife
DX: Z01.419 Encounter for gynecological examination (general) (routine) without abnormal findings (principal)
CPT/HCPCS: 99395

== ENCOUNTER 2023-07-10 14:22 | Outpatient (REF) | payer OTHER, SELFPAY | END 2023-07-10 14:23 | disposition home or self-care (01) | LOC: HO.LNP 14:22 | PROVIDERS: PCP Internal Medicine; Visit Provider Advanced Practice Midwife | DX: Z01.419 Encounter for gynecological examination (general) (routine) without abnormal findings (principal); Z20.2 Contact with and (suspected) exposure to infections with a predominantly sexual mode of transmission | CPT/HCPCS: 99395 ==

== ENCOUNTER 2023-07-10 14:58 | Outpatient (REF) | payer OTHER, SELFPAY ==
[2023-07-10 18:05] LABS: CT PCR NOT DETECTED (Not Detect.); NG PCR NOT DETECTED (Not Detect.)
[2023-07-11 04:19] LABS: Syphilis Screen Nonreactive (Nonreactive)
[2023-07-11 04:37] LABS: HBc Num1 0.11 S/CO (0.00-0.79); HIV AB/AG Nonreactive (Nonreactive); HIV Num 1 0.05 S/CO (0.00-0.99); Hepatitis B Core Antibody Nonreactive (Nonreactive); ~HepC Num1 0.15 S/CO (0.00-0.79); ~Hepatitis C Antibody Nonreactive (Nonreactive)
== END 2023-07-10 14:59 | disposition home or self-care (01) ==
LOC: HO.LAB 14:58
PROVIDERS: Absent Provider Internal Medicine Medical Oncology; PCP Internal Medicine; Visit Provider Advanced Practice Midwife
DX: Z20.2 Contact with and (suspected) exposure to infections with a predominantly sexual mode of transmission (principal)
CPT/HCPCS: 0353U; 86704; 86780; 86803; 87389

== ENCOUNTER 2023-09-09 17:16 | Outpatient (AMB) | payer OTHER, SELFPAY ==
[2023-09-09 17:28] VITALS: BP 116/66; PULSE 72; O2SAT 100; BMI 27.0
--- NOTE | 2023-09-09 17:28 | MHC.PC.OV ---
Vital Signs 09/09/23 17:28 Height 5 ft 5 in Weight 162 lb 2 oz BMI 27.0 BP 116/66 Blood Pressure Location Lt brachial Position Sitting Pulse 72 Pulse Source Pulse Oximeter Pulse Oximetry (%) 100 Oxygen Delivery Method Room Air Intake Visit Reasons: PE Intake Note: Patient is here today for a physical. Application Security Architect Required: No Accompanied by: Self / Same As Patient Is last menstrual period known: Yes Last menstrual period: 08/29/23 Allergies No Known Allergies Allergy (Verified 09/09/23 17:33) Medication List - Last Reconciled 09/09/23 by Sancho Jc MD whey protein iso-collagen,hydr 16 gram-90 kcal/60 mL ea PO Tobacco use date assessed: 09/09/23 Dental Screening Dental Screen Date: 09/09/23 Did you have a dental visit in the last 12 months?: Yes Did you have a dental problem in the last 6 months where you did not have access to dental care?: No Was dental information given to patient?: Patient has dentist HPI PE HPI Details 38-year-old overweight female coming in for physical exam last seen in March 2023 for tonsillar hypertrophy. Referred to ENT patient's Pap smear is up-to-date. Patient follows up with Hematology-Oncology for MGUS and RA but has seen Rheumatology since then and does not feel it is rheumatoid arthritis. As for the MGUS continuing to monitor. [facility] Medical History Exposure to chlamydia Overweight (BMI 25.0-29.9) Rheumatoid factor positive Condyloma MARCO II (cervical intraepithelial neoplasia II) Hypercholesterolemia Insomnia Vitamin D deficiency Cervical dysplasia B12 deficiency Surgical History H/O cosmetic surgery Hx of tubal ligation History of loop electrical excision procedure (LEEP) Family History Father Liver cancer Hep C w/o coma, chronic Diabetes mellitus Family history of thyroid problem Paternal Aunt Breast cancer Maternal Grandmother Myocardial infarct Mother Osteoarthritis Gastritis Family/Other Breast cancer Social History Household Members: Children Housing: Apartment Are you a primary progressive care unit registered nurse to a significant other at home: No Do you presently have visiting nurse or other home services: No Alcohol intake: former Patient Tobacco Use Status: Never used Tobacco e-Cigarette/Vaping Use: Never Used Second Hand Smoke Exposure: No service: No Current occupational status: employed 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 1. Little interest or pleasure in doing things: not at all 2. Feeling down, depressed, or hopeless: not at all 3. Trouble falling or staying asleep, or sleeping too much: not at all 4. Feeling tired or having little energy: not at all 5. Poor appetite or overeating: not at all 6. Feeling bad about yourself - or that you are a failure or have let yourself or your family down: not at all 7. Trouble concentrating on things, such as reading the newspaper or watching television: not at all 8. Moving or speaking so slowly that other people could have noticed. Or the opposite - being so fidgety or restless that you have been moving around a lot more than usual: not at all 9. Thoughts that you would be better off or of hurting yourself in some way: not at all Total score: 0 Depression Screening Interpretation: Negative Depression Screening Done: Yes 10965 - PHQ-9 Billing: Yes Source: Developed by Drs. Tommy Berg, Monica Ballesteros, Chris Nagy and colleagues, with an educational chepe from [employer]. Thrive Questionnaire Date Thrive assessed: 09/09/23 I am a: Patient What is your living situation today?: I have a steady place to live Within the past 12 months, did the food you bought not last and you didn't have the money to get more?: Never true Within the past 12 months, did you worry whether your food would run out before you got money to buy more?: Never true Do you have trouble paying for medicines?: No Do you have trouble getting transportation to medical appointments?: No Do you have trouble paying your heating and electricity bill?: No Do you have trouble taking care of your child, family member or friend?: No Do you have trouble with day-to-day activities such as bathing, preparing meals, shopping, managing finances, etc.?: No Are you currently unemployed and looking for a job?: No Are you interested in more education?: No Please select the resources that you would like help with: None Currently or been in a relationship where the following occur: no concerns reported THRIVE Score: 0 AUDIT C Alcohol Use Questionnaire (AUDIT-C) 1. How often do you have a drink containing alcohol?: Never 3. How often do you have six or more drinks on one occasion?: Never Total Score: 0 CRISTINO-7 AMB Questionnaire CRISTINO-7 Date CRISTINO - 7 assessed: 09/09/23 Feeling nervous, anxious, or on edge: 0 = Not at all Not being able to stop or control worryin = Not at all Worrying too much about different things: 0 = Not at all Trouble relaxin = Not at all Being so restless that it is hard to sit still: 0 = Not at all Becoming easily annoyed or irritable: 0 = Not at all Feeling afraid as if something awful might happen: 0 = Not at all Total CRISTINO-7 score (0-4 normal; 5-9 mild; 10-14 moderate; 15-21 severe): 0 Source: Developed by Drs. Tommy Berg, Monica Ballesteros, Chris Nagy and colleagues, with an educational chepe from [employer]. CRISTINO-7 Assessment Billing CRISTINO-7 Assessment Tool: CRISTINO-7 Assessment 60728 Review of Systems Const Denies poor appetite and Denies weakness Eyes Denies no additional complaints ENT Reports Normal hearing present, Denies dizziness, Denies nasal congestion, Denies tinnitus and Denies sore throat Card Denies chest pain, Denies syncope, Denies rapid heart rate and Denies dyspnea Resp Denies cough and Denies dyspnea GI Denies change in stool character, Reports constipation, Denies diarrhea, Denies nausea and Denies vomiting Denies urinary frequency, Denies difficulty voiding and Denies dysuria Neuro Reports Normal hearing present, Denies confusion, Denies dizziness, Denies syncope and Denies weakness Psych Denies confusion Physical exam (Primary Care) Vital Signs: Last Vital Signs Pulse 72 09/09/23 17:28 BP 116/66 09/09/23 17:28 Pulse Ox 100 09/09/23 17:28 Oxygen Delivery Method Room Air 09/09/23 17:28 BMI result Body Mass Index 27.0 Tobacco/Smoking Status: Tobacco use Status Tobacco use date assessed 09/09/23 09/09/23 17:34 Patient Tobacco Use Status Never used Tobacco 09/09/23 17:32 e-Cigarette/Vaping Use Never Used 09/09/23 17:32 PHQ-9: PHQ-9 Score PHQ-9: Total score 0 09/09/23 17:34 Depression Screening Interpretation: Negative Thrive Assessment: Date of Thrive Assessment Date Thrive assessed 09/09/23 09/09/23 17:34 Currently or been in a relationship where the following occur: no concerns reported Const General: No confusion Orientation/consciousness: No confusion HENMT Head: Yes normocephalic Ears: external ears normal and TM's normal bilaterally Face and sinus: Yes normal facial exam Mouth: moist mucous membranes Throat: Yes tonsils normal Eyes Conjunctivae: conjunctivae normal Pupils: Equal, round and reactive pupils present and Pupil accommodation reflex normal Direct Ophthalmoscopy: normal light reflex Neck Neck: No lymphadenopathy Thyroid: Thyroid normal Chest Chest palpation & inspection: normal inspection of the chest Resp Effort & Inspection: normal respiratory effort and no audible wheezes Auscultation: clear to auscultation bilaterally, no crackles, no wheezes and lung sounds not diminished Cardio Rate: regular rate Rhythm: regular rhythm Peripheral pulses: radial pulses present and dorsalis pedis present GI Palpation (GI): no masses Auscultation: normal bowel sounds and normoactive bowel sounds Rectal Exam - Female: deferred Skin General skin exam: no rashes or lesions noted Rashes: no rashes Neuro General: No confusion Cranial nerves: Yes Equal, round and reactive pupils present and Yes Normal hearing present Cognition (Neuro): normal cognition Gait exam (Neuro): Normal gait present Motor exam (neuro): 5/5 motor strength present throughout Deep tendon reflexes (DTR's): Right brachioradialis reflex intensity grade: 2+, Left brachioradialis reflex intensity grade: 2+, Right patellar reflex intensity grade: 2+ and Left patellar reflex intensity grade: 2+ Extrem General: No edema Assessment and Plan Assessment & Plan (1) Annual physical exam: Code(s): Z00.00 - Encounter for general adult medical examination without abnormal findings (2) Overweight (BMI 25.0-29.9): Code(s): E66.3 - Overweight Plan: Diet and exercise (3) MGUS (monoclonal gammopathy of unknown significance): Code(s): D47.2 - Monoclonal gammopathy Plan: Patient has continued to be followed up by hematology oncology (4) FINLEY (nonalcoholic steatohepatitis): Comment: [facility] 09/09/20 Plt Count 291 Ferritin 39 Total Bilirubin 0.7 AST 14 ALT 8 Alkaline Phosphatase 6 Direct Bilirubin 0.3 GGT 21 Alpha Fetoprotein 1.4 ASHLEY Screen NEGATIVE Ferritin 29 Total Bilirubin 1.4 H AST 12 ALT 11 Alkaline Phosphatase 76 Anti-Mitochondrial Ab NEGATIVE Anti-Smooth Muscle Ab <20 Hep B Core Total Ab Nonreactive Hepatitis C Ab (EIA) Nonreactive HIV 1&2 Ab/P24 Ag 4thGn Nonreactive ULTRASOUND OF THE ABDOMEN WITH ELASTOGRAPHY 09/19/21 (1.5= F 0) CURRENT LABS ULTRASOUND OF THE ABDOMEN WITH ELASTOGRAPHY 09/19/21 (1.5= F 0) IMPRESSION: 1. Impression: Small liver cyst. 2 small hyperechoic splenic lesions questionable for hemangiomas. ? 2. Liver elastography:? Adequate liver sampling.? In the absence of other known clinical signs, rules out compensated advanced chronic liver disease. Code(s): K75.81 - Nonalcoholic steatohepatitis (FINLEY) Plan: Low-fat diet and exercise (5) Rheumatoid factor positive: Comment: April 2019 Dr. Damon Code(s): R76.8 - Other specified abnormal immunological findings in serum Plan: Patient follows up with Rheumatology (6) Hypercholesterolemia: Code(s): E78.00 - Pure hypercholesterolemia, unspecified Plan: Avoid fried foods, chicken skin, eggs, butter margarine, pastries and meat. Be it pork or beef they have a lot of cholesterol LDL goal of less than 130 and triglyceride of less than 150. Last blood work were within normal limits. Orders: Orders Comprehensive Met. Panel Today K75.81 - Nonalcoholic steatohepatitis (FINLEY) Thyroid Stimulating Hormone Today K75.81 - Nonalcoholic steatohepatitis (FINLEY) Vitamin B12 and Folate Today K75.81 - Nonalcoholic steatohepatitis (FINLEY) Vitamin D 25-OH Total Today K75.81 - Nonalcoholic steatohepatitis (FINLEY) Erythrocyte Sedimentation Rate Today R76.8 - Other specified abnormal immunological findings in serum C Reactive Protein Today R76.8 - Other specified abnormal immunological findings in serum Complete Blood Count Auto Diff Today K75.81 - Nonalcoholic steatohepatitis (FINLEY) Free T4 (Free Thyroxine) Today K75.81 - Nonalcoholic steatohepatitis (FINLEY) Lipid Panel Today E78.00 - Pure hypercholesterolemia, unspecified, K75.81 - Nonalcoholic steatohepatitis (FINLEY) Referrals Hematology & Oncology Referral D47.2 - Monoclonal gammopathy Coding Level of Care Code Est Pt Prev Care 18-39y(64404) Diagnoses Annual physical exam Z00.00 Overweight (BMI 25.0-29.9) E66.3 MGUS (monoclonal gammopathy of unknown significance) D47.2 FINLEY (nonalcoholic steatohepatitis) K75.81 Rheumatoid factor positive R76.8 Hypercholesterolemia E78.00 Additional Codes CRISTINO-7 Assessment Billing - CRISTINO-7 Assessment Tool: CRISTINO-7 Assessment 26735 ([id number])
== END 2023-09-09 17:59 | disposition home or self-care (01) ==
PROVIDERS: Visit Provider Internal Medicine
DX: Z00.00 Encounter for general adult medical examination without abnormal findings (principal); E66.3 Overweight; D47.2 Monoclonal gammopathy; K75.81 Nonalcoholic steatohepatitis (NASH); R76.8 Other specified abnormal immunological findings in serum; E78.00 Pure hypercholesterolemia, unspecified
CPT/HCPCS: 99395

== ENCOUNTER 2023-10-29 11:19 | Outpatient (REF) | payer OTHER, SELFPAY | END 2023-10-29 11:20 | disposition home or self-care (01) | LOC: HO.LAB 11:19 | PROVIDERS: PCP Internal Medicine; Visit Provider Internal Medicine | DX: Z13.89 Encounter for screening for other disorder (principal) ==

== ENCOUNTER 2023-10-30 10:26 | Outpatient (REF) | payer OTHER, SELFPAY ==
[2023-10-30 10:34] LABS: MANUAL DIFF FLAG NO
[2023-10-30 10:50] LABS: Basophils Percent Auto 0.5 % (0-2); Eosinophils Absolute Auto 0.1 X10*3/uL (0.0-0.4); Eosinophils Percent Auto 0.6 % (0-4); Hematocrit 38.2 % (37.0-47.0); Imm Gran Abs Auto 0.01 X10*3/uL (0.00-0.03); Imm Gran Pct Auto 0.1 % (0.0-0.4); Lymphocytes Absolute Auto 2.3 X10*3/uL (1.2-4.9); Lymphocytes Percent Auto 28.6 % (20-40); Mean Corpuscular Hemoglobin 30.2 pg (27.0-33.0); Mean Corpuscular Volume 88.8 fL (80.0-98.0); Mean Platelet Volume 10.5 fL (9.4-12.3); Monocytes Absolute Auto 0.4 X10*3/uL (0.1-1.2); Monocytes Percent Auto 5.4 % (2-11); Neutrophils Absolute Auto 5.1 x10*3/uL (2.0-8.3); Neutrophils Percent Auto 64.8 % (45-73); Platelet Count 297 X10*3/uL (160-400); Red Cell Distribution Width 12.4 % (11.0-16.0); White Blood Count 7.9 X10*3/uL (4.8-10.8)
[2023-10-30 11:26] LABS: Alanine Aminotransferase 9 U/L (0-31); Albumin Level 3.8 g/dL (3.5-5.0); Alkaline Phosphatase 64 U/L (39-117); Anion Gap 11 (12-20); Aspartate Amino Transferase 14 U/L (5-31); Bilirubin Total 0.7 mg/dL (0.0-1.0); Blood Urea Nitrogen 11 mg/dL (9-16); C Reactive Protein 0.23 mg/dL (< or = 0.50); Calcium 9.1 mg/dL (8.4-10.2); Carbon Dioxide 27 mmol/L (22-29); Chloride 105 mmol/L (96-108); Cholesterol 167 mg/dL (<200); Estimated Glomerular Filt Rate > 60; Glucose Random 96 mg/dL (60-115); HDL Cholesterol 43 mg/dL (>40); LDL Cholesterol Calculated 104 mg/dL (<100); Potassium 4.7 mmol/L (3.3-5.1); Sodium 138 mmol/L (135-145); Total Protein 8.3 g/dL (6.5-8.0); Triglycerides 103 mg/dL (<150)
[2023-10-30 11:30] LABS: Erythrocyte Sedimentation Rate 33 MM/HR (0-20)
[2023-10-30 11:44] LABS: Free T4 (Free Thyroxine) 0.87 ng/dL (0.71-1.85); Thyroid Stimulating Hormone 1.97 uIU/mL (0.32-4.0); Vitamin D 25-OH Total 22.6 ng/mL (>30)
[2023-10-30 11:48] LABS: Folate 9.9 ng/mL (> or = 4.0); Vitamin B12 362 pg/mL (200-900)
== END 2023-10-30 10:27 | disposition home or self-care (01) ==
LOC: HO.LAB 10:26
PROVIDERS: PCP Internal Medicine; Visit Provider Internal Medicine
DX: K75.81 Nonalcoholic steatohepatitis (NASH) (principal); E78.00 Pure hypercholesterolemia, unspecified; R76.8 Other specified abnormal immunological findings in serum
CPT/HCPCS: 36415; 80053; 80061; 82306; 82607; 82746; 84439; 84443; 85025; 85652; 86140

== ENCOUNTER 2023-10-31 09:39 | Outpatient (REF) | payer OTHER, SELFPAY ==
[2023-10-31 18:21] LABS: CT PCR NOT DETECTED (Not Detect.); NG PCR NOT DETECTED (Not Detect.)
[2023-11-01 10:59] LABS: BV Int Neg Control Negative (Negative); BV Int Pos Control Positive (Positive)
== END 2023-10-31 09:40 | disposition home or self-care (01) ==
LOC: HO.LNP 09:39
PROVIDERS: PCP Internal Medicine; Visit Provider Advanced Practice Midwife
DX: R10.2 Pelvic and perineal pain (principal); Z32.02 Encounter for pregnancy test, result negative
CPT/HCPCS: 0353U; 81003; 81025; 87086; 87480; 87510; 87660; 99212

== ENCOUNTER 2023-10-31 09:39 | Outpatient (AMB) | payer OTHER, SELFPAY ==
--- NOTE | 2023-10-31 09:42 | A.OFFVIS_ITS ---
Vital Signs 10/31/23 09:49 Height 5 ft 5 in Weight 167 lb BMI 27.8 BP 110/70 Intake Visit Reasons: pelvic pain/confirmed Intake Note: Pain after intercourse Post Graduate Internship Required: No Information Interpreted: non-clinical & clinical Tomato Grader: Tomato Grader Present (Rochelle) Allergies No Known Allergies Allergy (Verified 10/31/23 09:49) Is last menstrual period known: Yes Last menstrual period: 10/17/23 Post menopausal: No HPI Comments Details: Patient is here today with concerns that she had pelvic pain on Saturday while she was ovulating, had intimacy that evening and had significant pain lasting over an hour. She denies any abnormal discharge, odor, dysuria, nausea, vomiting, constipation, diarrhea, fever or chills. She would intimacy again last night without any pain. History of bilateral tubal ligation. Urine dip today reveals trace blood. UPT is negative. [facility] Medical History Exposure to chlamydia Overweight (BMI 25.0-29.9) Rheumatoid factor positive Condyloma MARCO II (cervical intraepithelial neoplasia II) Hypercholesterolemia Insomnia Vitamin D deficiency Cervical dysplasia B12 deficiency Surgical History H/O cosmetic surgery Hx of tubal ligation History of loop electrical excision procedure (LEEP) Family History Father Liver cancer Hep C w/o coma, chronic Diabetes mellitus Family history of thyroid problem Paternal Aunt Breast cancer Maternal Grandmother Myocardial infarct Mother Osteoarthritis Gastritis Family/Other Breast cancer Social History Household Members: Children Housing: Apartment Are you a primary post acute care nurse to a significant other at home: No Do you presently have visiting nurse or other home services: No Alcohol intake: former Patient Tobacco Use Status: Never used Tobacco e-Cigarette/Vaping Use: Never Used Second Hand Smoke Exposure: No service: No Current occupational status: employed 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 Gender identity: Female Cognitive needs: No Hearing needs: No Vision needs: No Female Reproductive History Menstrual Age of Menarche: 12 Duration of menses: 3-5 days Date of last menstrual period: 10/17/23 control method: permanent sterilization Total pregnancies: 4 Full term: 3 Number of Living Children: 3 Ab induced: 1 Date of last pap smear: 07/04/22 (negative) History of abnormal pap smear: Yes Review of Systems Const All systems reviewed & are unremarkable except as noted in HPI and below Physical Exam Vital Signs: Last Vital Signs BP 110/70 10/31/23 09:49 BMI result Body Mass Index 27.8 Const General: cooperative, healthy appearing and no acute distress Orientation/consciousness: patient oriented x3 GI Inspection: Yes normal to inspection Palpation (GI): Soft to palpation and Other GI palpation findings present (Nontender) Rectal Exam - Female: visual inspection normal General: Yes bladder normal to palpation External Female Exam: normal appearance of the urethra Speculum Exam - Vagina: normal appearance of the vagina, normal palpation and normal vaginal discharge Speculum Exam - Cervix: normal appearance of the cervix and normal palpation Bimanual exam- vagina & uterus: normal bimanual exam, normal palpation, uterine size normal, bladder normal to palpation, normal palpation, uterine shape normal and non-tender Bimanual Exam- Adnexa, other: normal adnexae Neuro General: patient oriented x3 Results AMB Test Urine AMB Test Urine Negative Last Edit by DESTIN Valdez on 10/31/23 10:13 AMB Urinalysis, Automated UA Leukoctes 0 Anusha/uL Last Edit by DESTIN Valdez on 10/31/23 10:13 UA Nitrite Negative Last Edit by DESTIN Valdez on 10/31/23 10:13 UA Urobilinogen 0 mg/dL Last Edit by DESTIN Valdez on 10/31/23 10:13 UA Protein 0 mg/dL Last Edit by DESTIN Valdez on 10/31/23 10:13 UA pH 6 Last Edit by DESTIN Valdez on 10/31/23 10:13 UA Blood 0.5 Hemanth/uL Last Edit by DESTIN Valdez on 10/31/23 10:13 UA Specific [place] 1.025 Last Edit by DESTIN Valdze on 10/31/23 10: 13 UA Ketone Negative Last Edit by DESTIN Valdez on 10/31/23 10:13 UA Bilirubin 0 mg/dL Last Edit by DESTIN Valdez on 10/31/23 10:13 UA Glucose 0 mg/dL Last Edit by DESTIN Valdez on 10/31/23 10:13 Results Reviewed Results Reviewed: Laboratory Last Values Urine pH (Auto) 6 10/31/23 10:07 Specific [place] (Auto) 1.025 10/31/23 10:07 Urine Protein (Auto) 0 mg/dL 10/31/23 10:07 Glucose (UA)(Auto) 0 mg/dL 10/31/23 10:07 Urine Ketones (Auto) Negative 10/31/23 10:07 Urine Blood (Auto) 0.5 Hemanth/uL 10/31/23 10:07 Urine Nitrite (Auto) Negative 10/31/23 10:07 Urine Bilirubin (Auto) 0 mg/dL 10/31/23 10:07 Urine Urobilinogen (Auto) 0 mg/dL 10/31/23 10:07 Leukocyte Esterase (Auto) 0 Anusha/uL 10/31/23 10:07 Tst Clinic Negative 10/31/23 10:07 Assessment & Plan Assessment & Plan (1) Pelvic pain: Code(s): R10.2 - Pelvic and perineal pain Plan Discussed: plan of care to include workup for pelvic pain including pelvic ultrasound, GC chlamydia, BV panel, urinalysis. Reviewed various causes of pelvic pain. Advised to follow up after ultrasound findings in person office visit. Monitor for symptoms if any severe pain go to the emergency room for immediate evaluation, milder pain she can use [id number] mild analgesics such as Tylenol and a heating pad if helpful. All of her questions and concerns were addressed to the best of my ability and shared decision making. She is agreeable to the plan of care. This note is constructed using voice recognition software. While every effort has been made to ensure accuracy, bean picker errors may have been included. Orders: Orders US pelvic and transvaginal Today R10.2 - Pelvic and perineal pain AMB HCG Urine Test Today Z32.02 - Encounter for test, result negative Urine Culture Today R10.2 - Pelvic and perineal pain AMB Urinalysis Automated Today R10.2 - Pelvic and perineal pain Bacterial Vaginosis Panel Today R10.2 - Pelvic and perineal pain CT NG by PCR Today R10.2 - Pelvic and perineal pain Coding Level of Care Code Est Pt Level 4 (90422) Diagnoses Pelvic pain R10.2
[2023-10-31 09:49] VITALS: BP 110/70; BMI 27.8
== END 2023-10-31 10:05 | disposition home or self-care (01) ==
PROVIDERS: PCP Internal Medicine; Visit Provider Advanced Practice Midwife
DX: R10.2 Pelvic and perineal pain (principal); Z32.02 Encounter for pregnancy test, result negative
CPT/HCPCS: 99214

== ENCOUNTER 2023-11-08 15:47 | Outpatient (REF) | payer OTHER, SELFPAY ==
--- NOTE | ~2023-11-08 | US_ITS ---
EXAMINATION: US PELVIS CLINICAL INFORMATION: Pelvic and perineal pain. COMPARISON: None available. TECHNIQUE: Ultrasound of the pelvis is performed using both transabdominal and transvaginal transducers along with Doppler. Transvaginal imaging is performed due to inadequate visualization transabdominally. FINDINGS: Uterus: The uterus is retroflexed and retroverted measuring 6.2 x 3.5 x 5.6 cm. The double wall endometrial thickness is 6 mm. The uterus is smooth in contour and has normal myometrial echogenicity. No visible fibroid. Adnexa: Both ovaries are visualized. There is normal color flow to the adnexa. There is no ovarian torsion. There is no pelvic ascites or fluid collection. Multiple echogenic foci are seen within both adnexa possibly secondary to prior surgery/tubal ligation. Right ovary measures 2.6 x 1.7 x 1.5 cm for a volume of 3.3 mL Left ovary measures 2.4 x 1.4 x 1.1 cm for a volume of 2.0 mL. US/US pelvic and transvaginal IMPRESSION: Unremarkable pelvic ultrasound.
== END 2023-11-08 15:48 | disposition home or self-care (01) ==
LOC: HO.US 15:47
PROVIDERS: PCP Internal Medicine; Visit Provider Advanced Practice Midwife
DX: R10.2 Pelvic and perineal pain (principal)
CPT/HCPCS: 76830; 76856

== ENCOUNTER 2023-12-20 15:12 | Outpatient (AMB) | payer OTHER, SELFPAY ==
[2023-12-20 15:16] VITALS: BP 106/70; BMI 27.3
--- NOTE | 2023-12-20 15:16 | MHC.OFFVIS ---
Vital Signs 12/20/23 15:16 Height 5 ft 5 in Weight 164 lb BMI 27.3 BP 106/70 Blood Pressure Location Lt brachial Position Sitting Intake Visit Reasons: US follow up Automation Control Technician: Automation Control Technician Present Allergies No Known Allergies Allergy (Verified 12/20/23 15:17) Is last menstrual period known: Yes HPI Comments Details: Patient is here today to discuss her ultrasound findings, prior visit she had pelvic pain during ovulation which was significantly uncomfortable for her at that time, urine test at that visit was negative. She has a history of tubal ligation. She reports the pain is completely resolved. She did treat for bacterial vaginosis and is concerned she has frequent occurrences. [facility] Medical History Exposure to chlamydia Overweight (BMI 25.0-29.9) Rheumatoid factor positive Condyloma MARCO II (cervical intraepithelial neoplasia II) Hypercholesterolemia Insomnia Vitamin D deficiency Cervical dysplasia B12 deficiency Surgical History H/O cosmetic surgery Hx of tubal ligation History of loop electrical excision procedure (LEEP) Family History Father Liver cancer Hep C w/o coma, chronic Diabetes mellitus Family history of thyroid problem Paternal Aunt Breast cancer Maternal Grandmother Myocardial infarct Mother Osteoarthritis Gastritis Family/Other Breast cancer Social History Household Members: Children Housing: Apartment Are you a primary health care / medical job titles to a significant other at home: No Do you presently have visiting nurse or other home services: No Alcohol intake: former Patient Tobacco Use Status: Never used Tobacco e-Cigarette/Vaping Use: Never Used Second Hand Smoke Exposure: No service: No Current occupational status: employed 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 Gender identity: Female Cognitive needs: No Hearing needs: No Vision needs: No Female Reproductive History Menstrual Age of Menarche: 12 Review of Systems Const All systems reviewed & are unremarkable except as noted in HPI and below Endo Reports no additional complaints Physical Exam Vital Signs: Last Vital Signs BP 106/70 12/20/23 15:16 BMI result Body Mass Index 27.3 Const General: cooperative, healthy appearing and no acute distress Psych Appearance: well kempt Attitude: cooperative Thought process: Normal thought process present Assessment & Plan Assessment & Plan (1) Encounter to discuss test results: Code(s): Z71.2 - Person consulting for explanation of examination or test findings Plan Discussed: Ultrasound findings are unremarkable, reviewed previous labs. Discussed chronic or reoccurring BV. Sample boric acid protocol provided encouraged probiotics. Follow up p.r.n. or for annual exam in 07/13/2024. If late for menses her have severe significant pelvic pain again always do home test. Positive would need immediate care due to the risk of tubal . All of her questions and concerns were addressed to the best of my ability and shared decision making. She is agreeable to the plan of care. This note is constructed using voice recognition software. While every effort has been made to ensure accuracy, inbound customer service representative errors may have been included. Coding Level of Care Code Est Pt Level 3 (40477) Diagnoses Encounter to discuss test results Z71.2
== END 2023-12-20 15:43 | disposition home or self-care (01) ==
PROVIDERS: PCP Internal Medicine; Visit Provider Advanced Practice Midwife
DX: Z71.2 Person consulting for explanation of examination or test findings (principal)
CPT/HCPCS: 99213

== ENCOUNTER → 2023-12-20 15:12 | Outpatient (BNVA) | payer OTHER, SELFPAY | PROVIDERS: PCP Internal Medicine; Visit Provider Advanced Practice Midwife | DX: Z71.2 Person consulting for explanation of examination or test findings (principal) | CPT/HCPCS: 99212 ==

== ENCOUNTER 2024-03-13 15:44 | Outpatient (AMB) | payer OTHER, SELFPAY ==
--- NOTE | 2024-03-13 15:47 | A.OFFPC_ITS ---
Vital Signs 03/13/24 15:48 Height 5 ft 5 in Weight 160 lb BMI 26.6 BP 110/70 Blood Pressure Location Lt brachial Position Sitting Pulse 76 Pulse Source Pulse Oximeter Pulse Oximetry (%) 99 Oxygen Delivery Method Room Air Intake Visit Reasons: MGUS Intake Note: Patient is here to follow up on MGUS. Night Time Babysitter Required: No Wire Straightening Machine Operator: Not Required per policy Accompanied by: Self / Same As Patient Allergies No Known Allergies Allergy (Verified 03/13/24 15:48) Tobacco use date assessed: 03/13/24 Dental Screening Dental Screen Date: 09/09/23 HPI MGUS HPI Details 39-year-old overweight female with MGUS- rheumatoid factor positive hypercholesterolemia last seen in August 2023. Patient is being followed up by hematology oncology in [facility] and blood work is being performed. Patient is seeing a therapist now from [facility] and has not recommended to take any other medication. Otherwise noted loss of weight with patient intentionally eating better. Appetite is good. Otherwise with regards to the Hematology-Oncology continuing to monitor. [facility] Medical History Exposure to chlamydia Overweight (BMI 25.0-29.9) Rheumatoid factor positive Condyloma MARCO II (cervical intraepithelial neoplasia II) Hypercholesterolemia Insomnia Vitamin D deficiency Cervical dysplasia B12 deficiency Surgical History H/O cosmetic surgery Hx of tubal ligation History of loop electrical excision procedure (LEEP) Family History Father Liver cancer Hep C w/o coma, chronic Diabetes mellitus Family history of thyroid problem Paternal Aunt Breast cancer Maternal Grandmother Myocardial infarct Mother Osteoarthritis Gastritis Family/Other Breast cancer Social History Household Members: Children Housing: Apartment Are you a primary post acute care nurse practitioner to a significant other at home: No Do you presently have visiting nurse or other home services: No Alcohol intake: former Patient Tobacco Use Status: Never used Tobacco e-Cigarette/Vaping Use: Never Used Second Hand Smoke Exposure: No service: No Current occupational status: employed 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 How often do you have six or more drinks on one occasion?: Never Total Score: 0 CRISTINO-7 AMB Questionnaire CRISTINO-7 Date CRISTINO - 7 assessed: 09/09/23 Source: Developed by Drs. Tommy Berg, Monica Ballesteros, Chris Nagy and colleagues, with an educational chepe from [employer]. Physical exam (Primary Care) Vital Signs: Last Vital Signs Pulse 76 03/13/24 15:48 BP 110/70 03/13/24 15:48 Pulse Ox 99 03/13/24 15:48 Oxygen Delivery Method Room Air 03/13/24 15:48 BMI result Body Mass Index 26.6 Tobacco/Smoking Status: Tobacco use Status Tobacco use date assessed 03/13/24 03/13/24 15:53 Patient Tobacco Use Status Never used Tobacco 03/13/24 15:53 e-Cigarette/Vaping Use Never Used 03/13/24 15:53 Thrive Assessment: Date of Thrive Assessment Date Thrive assessed 09/09/23 03/13/24 15:53 Const General: alert; No acute distress Eyes Conjunctivae: conjunctivae normal Resp Auscultation: clear to auscultation bilaterally Cardio Rate: regular rate Rhythm: regular rhythm GI Inspection: Yes normal to inspection Extrem General: Yes normal to inspection and No edema Assessment and Plan Assessment & Plan (1) FINLEY (nonalcoholic steatohepatitis): Comment: [facility] 09/09/20 Plt Count 291 Ferritin 39 Total Bilirubin 0.7 AST 14 ALT 8 Alkaline Phosphatase 6 Direct Bilirubin 0.3 GGT 21 Alpha Fetoprotein 1.4 ASHLEY Screen NEGATIVE Ferritin 29 Total Bilirubin 1.4 H AST 12 ALT 11 Alkaline Phosphatase 76 Anti-Mitochondrial Ab NEGATIVE Anti-Smooth Muscle Ab <20 Hep B Core Total Ab Nonreactive Hepatitis C Ab (EIA) Nonreactive HIV 1&2 Ab/P24 Ag 4thGn Nonreactive ULTRASOUND OF THE ABDOMEN WITH ELASTOGRAPHY 09/19/21 (1.5= F 0) CURRENT LABS ULTRASOUND OF THE ABDOMEN WITH ELASTOGRAPHY 09/19/21 (1.5= F 0) IMPRESSION: 1. Impression: Small liver cyst. 2 small hyperechoic splenic lesions questionable for hemangiomas. ? 2. Liver elastography:? Adequate liver sampling.? In the absence of other known clinical signs, rules out compensated advanced chronic liver disease. Code(s): K75.81 - Nonalcoholic steatohepatitis (IFNLEY) Plan: Low-fat diet and exercise (2) MGUS (monoclonal gammopathy of unknown significance): Code(s): D47.2 - Monoclonal gammopathy Plan: Patient is being evaluated by hematology oncology and followed up (3) Generalized anxiety disorder: Comment: therapy [facility] (02/2024) Code(s): F41.1 - Generalized anxiety disorder Plan: continue with therapist. Coding Level of Care Code Est Pt Level 4 (80519) Diagnoses FINLEY (nonalcoholic steatohepatitis) K75.81 MGUS (monoclonal gammopathy of unknown significance) D47.2 Generalized anxiety disorder F41.1
[2024-03-13 15:48] VITALS: BP 110/70; PULSE 76; O2SAT 99; BMI 26.6
== END 2024-03-13 17:13 | disposition home or self-care (01) ==
PROVIDERS: PCP Internal Medicine; Visit Provider Internal Medicine
DX: K75.81 Nonalcoholic steatohepatitis (NASH) (principal); D47.2 Monoclonal gammopathy; F41.1 Generalized anxiety disorder

== ENCOUNTER → 2024-03-13 15:44 | Outpatient (BNVA) | payer OTHER, SELFPAY | PROVIDERS: PCP Internal Medicine; Visit Provider Internal Medicine | DX: D47.2 Monoclonal gammopathy (principal); K75.81 Nonalcoholic steatohepatitis (NASH); F41.1 Generalized anxiety disorder | CPT/HCPCS: 99212 ==

== ENCOUNTER 2024-07-16 13:23 | Outpatient (AMB) | payer OTHER, SELFPAY ==
--- NOTE | 2024-07-16 13:25 | MHC.OFFVIS ---
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 Doing well with rn obgyn concerns. Regular monthly menses. Currently is sexually active. She denies vaginal itching and irritation. STI screening offered; she accepts. She tries to eat healthy and stays active with exercise-walks at work. Denies family history of breast, ovarian or colon cancer. Last pap smear 2022, negative. History of LEEP. [facility] History Exposure to chlamydia Overweight (BMI 25.0-29.9) Rheumatoid factor positive Condyloma MARCO II (cervical intraepithelial neoplasia II) Hypercholesterolemia Insomnia Vitamin D deficiency Cervical dysplasia B12 deficiency Surgical History H/O cosmetic surgery Hx of tubal ligation History of loop electrical excision procedure (LEEP) Family History (Updated 07/16/24 @ 13:30 by DESTIN Hale) Father Liver cancer Hep C w/o coma, chronic Diabetes mellitus Family history of thyroid problem Paternal Aunt Breast cancer Maternal Grandmother Myocardial infarct Mother Osteoarthritis Gastritis Family/Other Breast cancer Family/Other Ovarian cancer Social History Household Members: Children Housing: Apartment Are you a primary care coordination manager to a significant other at home: No Do you presently have visiting nurse or other home services: No Alcohol intake: former Patient Tobacco Use Status: Never used Tobacco e-Cigarette/Vaping Use: Never Used Second Hand Smoke Exposure: No service: No Current occupational status: employed 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 Gender identity: Female Cognitive needs: No Hearing needs: No Vision needs: No Female Reproductive History Menstrual Age of Menarche: 12 Date of last menstrual period: 07/07/24 control method: permanent sterilization Permanent Sterilization: BTL Total pregnancies: 4 Full term: 3 Number of Living Children: 3 Ab induced: 1 Date of last pap smear: 07/03/22 (neg pap and hpv) History of abnormal pap smear: Yes (see intake note) Review of Systems Const All systems reviewed & are unremarkable except as noted in HPI and below Reports as per HPI Eyes Reports no additional complaints ENT Reports no additional complaints Card Reports no additional complaints Resp Reports no additional complaints GI Reports as per HPI and Reports no additional complaints Reports as per HPI Musc Reports no additional complaints Skin/Breast Reports as per HPI Neuro Reports no additional complaints Psych Reports no additional complaints Endo Reports no additional complaints Jim/Lymph Reports no additional complaints Aller/Immun Reports no additional complaints Physical Exam Vital Signs: Last Vital Signs BP 104/66 07/16/24 13:27 BMI result Body Mass Index 26.8 Const General: cooperative, healthy appearing, no acute distress, well developed and alert Orientation/consciousness: patient oriented x3 HEENT Head: Yes normal to inspection Eyes General: appearance normal, both eyes and all related structures Neck Neck: Yes normal visual inspection Thyroid: Thyroid normal Chest Chest palpation & inspection: normal inspection of the chest and other (no puckering, dimpling, peau de orange, retraction, discharge, masses) Breast/axilla inspection: normal inspection of the breasts Breast/axilla palpation: normal palpation of the breasts Resp Effort & Inspection: normal respiratory effort GI Inspection: Yes normal to inspection Palpation (GI): Soft to palpation Rectal Exam - Female: deferred General: Yes bladder normal to palpation External Female Exam: normal external appearance and normal appearance of the urethra Speculum Exam - Vagina: normal appearance of the vagina, normal palpation and normal vaginal discharge Speculum Exam - Cervix: normal appearance of the cervix and normal palpation Bimanual exam- vagina & uterus: normal bimanual exam, normal palpation, uterine size normal, bladder normal to palpation, normal palpation and non-tender Bimanual Exam- Adnexa, other: no masses Skin General skin exam: no rashes or lesions noted Rashes: no rashes Neuro General: patient oriented x3 Cognition (Neuro): normal cognition Extrem General: Yes normal to inspection Psych Attitude: cooperative Thought process: Normal thought process present Assessment & Plan Assessment & Plan (1) Well woman exam with routine gynecological exam: Code(s): Z01.419 - Encounter for gynecological examination (general) (routine) without abnormal findings Category: Medical Plan Discussed: Current recommendations for pap smears per ASCCP guidelines. Breast awareness and periodic breast exams. Mammogram yearly book after 40th birthday. Maintain a healthy lifestyle including a well balanced diet and routine exercise. BV panel, GC and chlamydia obtained, plan labs today, follow up pending results. Patient verbalizes understanding and agrees to the plan of care. She was given opportunity to ask questions and all questions were answered to the best of my ability. RTO in one year for annual rn obgyn examination. This note is constructed using voice recognition software. While every effort has been made to ensure accuracy, weigher operator errors may have been included. Orders: Orders Bacterial Vaginosis Panel Today N89.8 - Other specified noninflammatory disorders of vagina Hepatitis C Antibody Reflex Today Z20.2 - Contact with and (suspected) exposure to infections with a predominantly sexual mode of transmission MM tomosynthesis screening BI 02/01/25 Z12.31 - Encounter for screening mammogram for malignant neoplasm of breast CT NG by PCR Today N89.8 - Other specified noninflammatory disorders of vagina HIV Ab/Ag Today Z20.2 - Contact with and (suspected) exposure to infections with a predominantly sexual mode of transmission Hepatitis B Core Antibody Today Z20.2 - Contact with and (suspected) exposure to infections with a predominantly sexual mode of transmission Syphilis Screen Today Z20.2 - Contact with and (suspected) exposure to infections with a predominantly sexual mode of transmission Coding Level of Care Code Est Pt Prev Care 18-39y(62884) Diagnoses Well woman exam with routine gynecological exam Z01.419
[2024-07-16 13:27] VITALS: BP 104/66; BMI 26.8
--- OUTSIDE RECORDS SUMMARY | 2024-07-16 15:44 | XMS_ITS | Data Portability ---
Author Organization [place] [facility], Allergy Address [address] [place] [id number] Care Team Providers Care Quality Assurance Supervisor Name Role Phone JIL HESTER Primary Care Provider Assessment No assessment recorded. Plan of Treatment Reminders Order Date Submit Date Provider Last Modified By Organization Details Last Modified Time Details Appointments None record ed. Lab None record ed. Referral None record ed. Procedures None record ed. Surgeries None record ed. Imaging None record ed. Medication Orders None record ed. Patient TargetsNo targets recorded. Patient InstructionsNo instructions recorded. Reason for Referral None Reported. 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 Medical Equipment None Reported. Allergies No known drug allergies Medications Name Sig Start Date Stop Date Status Note LastModified by Organization Details LastModified Time valacyclovir 1 gram tablet TAKE 2 TABLETS 2000MG) BY MOUTH TWO TIMES A DAY FOR 1 DAY ONLY, MAY REPEAT NEEDED active Not Available Not Available No t Available metronidazole 500 mg tablet TAKE ONE TABLET BY MOUTH TWICE A DAY FOR 7 DAYS. TAKE WITH FOOD, AVOID ALCOHOL AND VINEGAR PRODUCTS active Not Available Not Available No t Available Vitals Date Recorded Body height Body mass index (BMI) Body weight Provider Name and Address Organization Details Last Updated DateTime 04/14/2024 165.1 cm 26.3 kg/m2 86119.59 g Thad Gustafson [place] - [facility] 04/14/2024 11:51:28 Social History None recorded. Functional Status None recorded. Mental Status None recorded. Family History Nothing Reported. Medical History No medical history recorded. Gynecological HistoryNo gynecological history recorded. Obstetrics History GPAL:G 0 P 0 0 0 0 Past Encounters Encounter ID Performer Location Encounter Start Date Encounter Closed Date Diagnosis/Indication Diagnosis SNOMED-CT Code Diagnosis ICD10 Code Diagnosis Note [id number] YEISON HODGSON MD [facility] [address] [phone] 04/14/2024 11:23:24 04/14/2024 12:07:09 Amygdalolith 3712895 J35.8 see below. Chronic tonsillitis [id number] [id number] J35.01 The patient has chronic tonsilliti s refractory to medical management . We discussed tonsillect malik as a last resort. Given the significan t quality of life impact of the chronic tonsilliti s the patient is a candidate for tonsillect malik. After a detailed discussion of the risks, benefits and alternativ es to tonsillect malik the patient and family will consider. Specifical ly, the risk of postoperat naz hemorrhage with return to the operating room, dehydratio n and risk of hospital readmissio n, throat pain, voice change and or swallowing problems were discussed. The patient will return the day of surgery. I also discussed salt water gargles. Health Concerns Section Related Observation LastModified by Organization Detai ls LastModified Time None Recorded Concern Status LastModified by Organization Details LastModified Time None Recorded Advance Directives Directive None Recorded Payers Encounter Date Sequence Insurance Name Policy Number Policy Perdomo Covered Member ID Perdomo Member ID Guarantor Name 04/14/2024 1 [facility] NET PLAN (MEDICAID HMO) LENORA Gonzales [id number] Trice Gonzales Notes Date Note Type Note Provider Name and Address Organization Details Recorded Time 04/14/2024 text/html She has a history of tonsil stones for years. They occur almost every day. She removes the stones herself. She has social anxiety related to halitosis from the frequent tonsil stones. No strep. No snoring. Otherwise healthy. No bleeding problems. YEISON HODGSON MD [address] [place] [address], [place], [phone], [place] - [facility] 04/14/2024 12:13:49 OBGyn Episode No OBEpisode recorded.
== END 2024-07-16 13:55 | disposition home or self-care (01) ==
PROVIDERS: PCP Internal Medicine; Visit Provider Advanced Practice Midwife
DX: Z01.419 Encounter for gynecological examination (general) (routine) without abnormal findings (principal)
CPT/HCPCS: 99395; 99459

== ENCOUNTER 2024-07-16 13:23 | Outpatient (REF) | payer OTHER, SELFPAY ==
[2024-07-16 21:00] LABS: Bacterial Vaginosis PCR NEGATIVE (Negative); Candida Group PCR DETECTED (Not Detect); Candida glab krusei PCR NOT DETECTED (Not Detect); Trichomonas vaginalis PCR NOT DETECTED (Not Detect)
== END 2024-07-16 13:24 | disposition home or self-care (01) ==
LOC: HO.LAB 13:23
PROVIDERS: PCP Internal Medicine; Visit Provider Advanced Practice Midwife
DX: Z01.419 Encounter for gynecological examination (general) (routine) without abnormal findings (principal); N89.8 Other specified noninflammatory disorders of vagina
CPT/HCPCS: 81515; 99395; 99459

== ENCOUNTER 2024-07-16 13:45 | Outpatient (REF) | payer OTHER, SELFPAY ==
[2024-07-17 07:56] LABS: Syphilis Screen Nonreactive (Nonreactive)
[2024-07-17 08:09] LABS: HBc Num1 0.11 S/CO (0.00-0.79); HIV AB/AG Nonreactive (Nonreactive); HIV Num 1 0.04 S/CO (0.00-0.99); Hepatitis B Core Antibody Nonreactive (Nonreactive); ~HepC Num1 0.19 S/CO (0.00-0.79); ~Hepatitis C Antibody Nonreactive (Nonreactive)
[2024-07-17 14:41] LABS: CT PCR NOT DETECTED (Not Detect.); NG PCR NOT DETECTED (Not Detect.)
== END 2024-07-16 13:46 | disposition home or self-care (01) ==
LOC: HO.LNP 13:45
PROVIDERS: Visit Provider Advanced Practice Midwife
DX: Z20.2 Contact with and (suspected) exposure to infections with a predominantly sexual mode of transmission (principal); N89.8 Other specified noninflammatory disorders of vagina
CPT/HCPCS: 86704; 86780; 86803; 87389; 87491; 87591

== ENCOUNTER 2024-07-16 13:57 | Outpatient (REF) | payer OTHER, SELFPAY | END 2024-07-16 13:58 | disposition home or self-care (01) | LOC: HO.LAB 13:57 | PROVIDERS: PCP Internal Medicine; Visit Provider Advanced Practice Midwife | DX: Z13.89 Encounter for screening for other disorder (principal) ==

== ENCOUNTER 2024-09-22 15:46 | Outpatient (REF) | payer OTHER, SELFPAY ==
[2024-09-23 09:26] LABS: Bacterial Vaginosis PCR NEGATIVE (Negative); Candida Group PCR DETECTED (Not Detect); Candida glab krusei PCR NOT DETECTED (Not Detect); Trichomonas vaginalis PCR NOT DETECTED (Not Detect)
== END 2024-09-22 15:47 | disposition home or self-care (01) ==
LOC: HO.LNP 15:46
PROVIDERS: PCP Internal Medicine
DX: Z00.00 Encounter for general adult medical examination without abnormal findings (principal); N89.8 Other specified noninflammatory disorders of vagina; F41.1 Generalized anxiety disorder; G56.22 Lesion of ulnar nerve, left upper limb; E80.4 Gilbert syndrome; E78.00 Pure hypercholesterolemia, unspecified; R76.8 Other specified abnormal immunological findings in serum; K75.81 Nonalcoholic steatohepatitis (NASH); K58.0 Irritable bowel syndrome with diarrhea; E66.3 Overweight; D47.2 Monoclonal gammopathy; J35.1 Hypertrophy of tonsils; L30.9 Dermatitis, unspecified; B00.9 Herpesviral infection, unspecified
CPT/HCPCS: 81515; 96127; 99395

== ENCOUNTER 2024-09-22 15:46 | Outpatient (AMB) | payer OTHER, SELFPAY ==
--- NOTE | 2024-09-22 16:01 | MHC.PC.OV ---
Vital Signs 09/22/24 16:02 Height 5 ft 5 in Weight 161 lb 4 oz BMI 26.8 BP 120/64 Blood Pressure Location Lt brachial Position Sitting Pulse 77 Pulse Source Pulse Oximeter Temp 97.3 F Temp Source Temporal Artery Scan Pulse Oximetry (%) 97 Oxygen Delivery Method Room Air Intake Visit Reasons: annual exam Intake Note: Patient is here today for a physical. Item Repair Manager Required: No Show Operations Supervisor: Not Required per policy Accompanied by: Self / Same As Patient Allergies No Known Allergies Allergy (Verified 09/22/24 16:08) Medication List - Last Reconciled 09/22/24 by Thuy Camacho PA-C fexofenadine (April Allergy) 180 mg PO DAILY valacyclovir 1,000 mg PO DAILY Tobacco use date assessed: 09/22/24 Dental Screening Dental Screen Date: 09/22/24 Did you have a dental visit in the last 12 months?: Yes Did you have a dental problem in the last 6 months where you did not have access to dental care?: No Was dental information given to patient?: Patient has dentist HPI annual exam HPI Details 39 year old female with past medial history of MGUS, FINLEY, IBS, hypercholesterolemia, Gilbert's syndrome, and anxiety last seen by Dr. Jc 02/2024 coming in for annual exam. In review of the notes, patient was seen by [facility] 06/2024 for annual exam. The patient is a 39-year-old female presenting with recurrent allergic rhinitis and eczema. She reports increased sneezing and suspects animal allergies due to the presence of a cat at home. She describes recurring skin eczema and occasionally uses topical treatments. Depression and anxiety have been more manageable recently. Previous cold sore needing medication is noted. She experiences frequent nocturia, potentially related to evening fluid intake and past pregnancies. mammo: will be due later this year pap smear: UTD and follows with mitochondrial disorders counselor vaccines: AZD [facility] Medical History (Updated 09/23/24 @ 10:18 by Thuy Camacho PA-C) COVID-19 virus infection Exposure to chlamydia Overweight (BMI 25.0-29.9) Rheumatoid factor positive Condyloma MARCO II (cervical intraepithelial neoplasia II) Hypercholesterolemia Insomnia Vitamin D deficiency Cervical dysplasia B12 deficiency Surgical History H/O cosmetic surgery Hx of tubal ligation History of loop electrical excision procedure (LEEP) Family History Father Liver cancer Hep C w/o coma, chronic Diabetes mellitus Family history of thyroid problem Paternal Aunt Breast cancer Maternal Grandmother Myocardial infarct Mother Osteoarthritis Gastritis Family/Other Breast cancer Family/Other Ovarian cancer Social History Household Members: Children Housing: Apartment Are you a primary ocular care aide to a significant other at home: No Do you presently have visiting nurse or other home services: No Alcohol intake: former Patient Tobacco Use Status: Never used Tobacco e-Cigarette/Vaping Use: Never Used Second Hand Smoke Exposure: No service: No Current occupational status: employed 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 1. Little interest or pleasure in doing things: several days 2. Feeling down, depressed, or hopeless: not at all 3. Trouble falling or staying asleep, or sleeping too much: several days 4. Feeling tired or having little energy: more than half the days 5. Poor appetite or overeating: several days 6. Feeling bad about yourself - or that you are a failure or have let yourself or your family down: several days 7. Trouble concentrating on things, such as reading the newspaper or watching television: several days 8. Moving or speaking so slowly that other people could have noticed. Or the opposite - being so fidgety or restless that you have been moving around a lot more than usual: not at all 9. Thoughts that you would be better off or of hurting yourself in some way: not at all Total score: 7 Depression Screening Interpretation: Positive Depression Screening Follow-up: Existing condition and Declines treatment Depression Screening Done: Yes Source: Developed by Drs. Tommy Berg, Monica Ballesteros, Chris Nagy and colleagues, with an educational chepe from [employer]. Thrive Questionnaire Date Thrive assessed: 09/15/24 I am a: Patient What is your living situation today?: I have a steady place to live Within the past 12 months, did the food you bought not last and you didn't have the money to get more?: Never true Within the past 12 months, did you worry whether your food would run out before you got money to buy more?: Never true Do you have trouble paying for medicines?: No Do you have trouble getting transportation to medical appointments?: No Do you have trouble paying your heating and electricity bill?: No Do you have trouble taking care of your child, family member or friend?: No Do you have trouble with day-to-day activities such as bathing, preparing meals, shopping, managing finances, etc.?: No Are you currently unemployed and looking for a job?: No Are you interested in more education?: No Please select the resources that you would like help with: None Currently or been in a relationship where the following occur: No concerns reported THRIVE Score: 0 AUDIT C Alcohol Use Questionnaire (AUDIT-C) 1. How often do you have a drink containing alcohol?: Never 3. How often do you have six or more drinks on one occasion?: Never Total Score: 0 Score Reviewed/Action Taken: Yes CRISTINO-7 AMB Questionnaire CRISTINO-7 Date CRISTINO - 7 assessed: 09/22/24 Feeling nervous, anxious, or on edge: 1 = Several days Not being able to stop or control worryin = Several days Worrying too much about different things: 1 = Several days Trouble relaxin = Several days Being so restless that it is hard to sit still: 1 = Several days Becoming easily annoyed or irritable: 1 = Several days Feeling afraid as if something awful might happen: 2 = More than half the days Total CRISTINO-7 score (0-4 normal; 5-9 mild; 10-14 moderate; 15-21 severe): 8 Source: Developed by Drs. Tommy Berg, Monica Ballesteros, Chris Nagy and colleagues, with an educational chepe from [employer]. CRISTINO-7 Assessment Billing CRISTINO-7 Assessment Tool: CRISTINO-7 Assessment 62968 Review of Systems Const Denies body aches, Denies fatigue, Denies fever(s), Denies frequent falls, Denies headache(s) and Denies weakness Eyes Reports no additional complaints and Denies change in vision ENT Denies dysphagia, Denies dizziness, Denies facial pain, Denies headache(s), Denies nasal congestion and Denies odynophagia Card Denies chest pain, Denies syncope, Denies irregular heart rhythm, Denies leg edema, Denies lightheadedness and Denies dyspnea Resp Denies cough and Denies dyspnea GI Denies abdominal pain, Denies constipation, Denies dysphagia, Denies dyspepsia, Denies diarrhea, Denies nausea, Denies odynophagia and Denies vomiting Denies urinary frequency, Denies dysuria, Denies urinary hesitancy and Denies urinary urgency Musc Denies back pain and Denies myalgias Skin/Breast Reports system reviewed and no additional complaints, except as documented Neuro Denies dizziness, Denies syncope, Denies frequent falls, Denies headache(s) and Denies weakness Psych Reports no additional complaints Endo Denies fatigue Physical exam (Primary Care) Vital Signs: Last Vital Signs Temp 97.3 F 09/22/24 16:02 Pulse 77 09/22/24 16:02 BP 120/64 09/22/24 16:02 Pulse Ox 97 09/22/24 16:02 Oxygen Delivery Method Room Air 09/22/24 16:02 BMI result Body Mass Index 26.8 Tobacco/Smoking Status: Tobacco use Status Tobacco use date assessed 09/22/24 09/22/24 16:06 Patient Tobacco Use Status Never used Tobacco 09/22/24 16:06 e-Cigarette/Vaping Use Never Used 09/22/24 16:06 PHQ-9: PHQ-9 Score PHQ-9: Total score 7 09/22/24 16:21 Depression Screening Interpretation: Positive Depression Screening Follow-up: Existing condition and Declines treatment Thrive Assessment: Date of Thrive Assessment Date Thrive assessed 09/15/24 09/22/24 16:06 Currently or been in a relationship where the following occur: No concerns reported Const General: cooperative, healthy appearing, comfortable and no acute distress Orientation/consciousness: patient oriented x3 HENMT Head: Yes normocephalic Ears: hearing grossly normal bilaterally, external ears normal, TM's normal bilaterally and EAC's normal General nose exam: Normal external nose present Face and sinus: Yes normal facial exam and Yes sinuses nontender Mouth: Normal oral and palatal mucosa present and tongue normal Throat: Yes posterior oropharynx normal Eyes General: appearance normal, both eyes and all related structures Conjunctivae: conjunctivae normal Pupils: Equal, round and reactive pupils present EOM: EOMs intact bilaterally and No Nystagmus present Neck Neck: Yes normal visual inspection, Yes full ROM and Yes no lymphadenopathy Chest Chest palpation & inspection: normal inspection of the chest Resp Effort & Inspection: normal respiratory effort Auscultation: clear to auscultation bilaterally, no crackles, no rales, no rhonchi, no wheezes and breath sounds present Cardio Rate: regular rate Rhythm: regular rhythm Peripheral pulses: radial pulses present and dorsalis pedis present GI Inspection: Yes normal to inspection and No Abdominal wall edema Palpation (GI): Soft to palpation, not firm and nontender Auscultation: normal bowel sounds Rectal Exam - Female: deferred General: Yes no CVA tenderness Back/Spine/Pelvis Back: no CVA tenderness Skin General skin exam: no rashes or lesions noted Neuro General: patient oriented x3 Cranial nerves: Yes Equal, round and reactive pupils present, Yes Midline tongue present, Yes Ability to bilaterally elevate shoulders present and No Nystagmus present Gait exam (Neuro): Normal gait present Extrem General: Yes normal to inspection, Yes full ROM, No no pedal edema and No edema Psych Speech and movement: Normal speech and movement present Affect: normal affect Insight: Good insight present (Psych) Judgement: Good judgement present (Psych) Coding Level of Care Code Est Pt Prev Care 18-39y(38697) Diagnoses Generalized anxiety disorder F41.1 Ulnar neuropathy at elbow of left upper extremity G56.22 [place] syndrome E80.4 Hypercholesterolemia E78.00 Rheumatoid factor positive R76.8 FINLEY (nonalcoholic steatohepatitis) K75.81 Irritable bowel syndrome with diarrhea K58.0 Overweight (BMI 25.0-29.9) E66.3 Annual physical exam Z00.00 MGUS (monoclonal gammopathy of unknown significance) D47.2 Vaginal discharge N89.8 Tonsillar hypertrophy J35.1 Eczema L30.9 Allergic rhinitis J30.9 HSV infection B00.9 Additional Codes CRISTINO-7 Assessment Billing - CRISTINO-7 Assessment Tool: CRISTINO-7 Assessment [id number] ([id number]) Assessment & Plan Assessment & Plan (1) Generalized anxiety disorder: Comment: therapy psych wellness group (02/2024) Code(s): F41.1 - Generalized anxiety disorder Category: Medical Plan: The patient's mental health is stable on current treatment, and we continue to monitor progress. (2) Ulnar neuropathy at elbow of left upper extremity: Code(s): G56.22 - Lesion of ulnar nerve, left upper limb Category: Medical Plan: Currently asymptomatic at this time. (3) [place] syndrome: Code(s): E80.4 - Gilbert syndrome Category: Medical Plan: Continue to monitor liver tests. (4) Hypercholesterolemia: Code(s): E78.00 - Pure hypercholesterolemia, unspecified Category: Medical Plan: Avoid foods that are high in cholesterol such as red meat, fried foods, eggs and baked goods. Triglyceride goal of less than 150 and LDL goal of less than 130. not currently on medical management. Ordered for updated blood work (5) Rheumatoid factor positive: Comment: April 2019 Dr. Damon Code(s): R76.8 - Other specified abnormal immunological findings in serum Category: Medical Plan: Continue to monitor symptoms at this time. (6) FINLEY (nonalcoholic steatohepatitis): Comment: [facility] 09/09/20 Plt Count 291 Ferritin 39 Total Bilirubin 0.7 AST 14 ALT 8 Alkaline Phosphatase 6 Direct Bilirubin 0.3 GGT 21 Alpha Fetoprotein 1.4 ASHLEY Screen NEGATIVE Ferritin 29 Total Bilirubin 1.4 H AST 12 ALT 11 Alkaline Phosphatase 76 Anti-Mitochondrial Ab NEGATIVE Anti-Smooth Muscle Ab <20 Hep B Core Total Ab Nonreactive Hepatitis C Ab (EIA) Nonreactive HIV 1&2 Ab/P24 Ag 4thGn Nonreactive ULTRASOUND OF THE ABDOMEN WITH ELASTOGRAPHY 09/19/21 (1.5= F 0) CURRENT LABS ULTRASOUND OF THE ABDOMEN WITH ELASTOGRAPHY 09/19/21 (1.5= F 0) IMPRESSION: 1. Impression: Small liver cyst. 2 small hyperechoic splenic lesions questionable for hemangiomas. ? 2. Liver elastography:? Adequate liver sampling.? In the absence of other known clinical signs, rules out compensated advanced chronic liver disease. Code(s): K75.81 - Nonalcoholic steatohepatitis (FINLEY) Category: Medical Plan: Healthy diet and regular exercise is encouraged. Continue to follow LFTs (7) Irritable bowel syndrome with diarrhea: Code(s): K58.0 - Irritable bowel syndrome with diarrhea Category: Medical Plan: Mainly managed with dietary changes may use Imodium or fiber supplement as needed for diarrhea. (8) Overweight (BMI 25.0-29.9): Code(s): E66.3 - Overweight Category: Medical Plan: Healthy diet and regular exercise is encouraged. (9) Annual physical exam: Code(s): Z00.00 - Encounter for general adult medical examination without abnormal findings Category: Medical Plan: Patient is up-to-date on all recommended routine screenings and vaccinations for her age. Mammogram was ordered by her technical sales director for later this year as she will be turning 40 years old. Comprehensive blood tests are scheduled to assess diabetes, cholesterol, and vitamin D levels, addressing past detected deficiencies. (10) MGUS (monoclonal gammopathy of unknown significance): Code(s): D47.2 - Monoclonal gammopathy Category: Medical Plan: Following with gas collection system operator yearly. (11) Vaginal discharge: Code(s): N89.8 - Other specified noninflammatory disorders of vagina Category: Medical Plan: Ordered for vaginal swab for further evaluation of vaginal discharge. (12) Tonsillar hypertrophy: Comment: follows with Dr. Gonzales Code(s): J35.1 - Hypertrophy of tonsils Category: Medical Plan: Patient is currently following with Dr. Gonzales through [facility] and considering tonsillectomy. (13) Eczema: Code(s): L30.9 - Dermatitis, unspecified Category: Medical Plan: Patient has eczema on bilateral elbows and bilateral hands plan to send topical steroid as needed for flares. May also use topical emollients such as Aquaphor and Eucerin for maintenance therapy. (14) Allergic rhinitis: Code(s): J30.9 - Allergic rhinitis, unspecified Category: Medical Plan: Patient having symptoms consistent with allergic rhinitis recommended use of April daily and Flonase. (15) HSV infection: Code(s): B00.9 - Herpesviral infection, unspecified Category: Medical Plan: Patient having occasional cold sores managed by the use of valacyclovir. Plan This note was constructed using voice recognition software. While every effort has been made to ensure accuracy and multiple needle stitcher, still areas may have been included sometimes these areas may affect the content or meeting of the given symptoms. Total time spent caring for the patient today was 30 minutes. This includes time spent before the visit reviewing the chart, time spent during the visit, and time spent after the visit and documentation. Patient was informed and verbally consented to the use of an ambient scribe for clinic note documentation during this visit. Orders: Orders TSH reflex Free T4 09/22/24 Z00.00 - Encounter for general adult medical examination without abnormal findings Vitamin B12 and Folate 09/22/24 Z00.00 - Encounter for general adult medical examination without abnormal findings UA CC w/rflx Micro + Cult 09/22/24 R35.89 - Other polyuria IRON PROFILE 09/22/24 N92.6 - Irregular menstruation, unspecified CT NG by PCR 09/22/24 Z00.00 - Encounter for general adult medical examination without abnormal findings Comprehensive Met. Panel 09/22/24 Z00. - Encounter for general adult medical examination without abnormal findings Complete Blood Count Auto Diff 09/22/24 Z. - Encounter for general adult medical examination without abnormal findings Vitamin D 25-OH Total 09/22/24 Z00.00 - Encounter for general adult medical examination without abnormal findings Free T4 (Free Thyroxine) 09/22/24 Z00.00 - Encounter for general adult medical examination without abnormal findings Hemoglobin A1c 09/22/24 Z13.1 - Encounter for screening for diabetes mellitus Lipid Panel 09/22/24 Z13.220 - Encounter for screening for lipoid disorders Bacterial Vaginosis Panel 09/22/24 N89.8 - Other specified noninflammatory disorders of vagina, Z00.00 - Encounter for general adult medical examination without abnormal findings Medications: New fexofenadine (April Allergy) 180 mg PO DAILY 60 tabs 1RF triamcinolone acetonide 0.5% 1 appl topical DAILY 15 grams 0RF
[2024-09-22 16:02] VITALS: BP 120/64; PULSE 77; TEMP 36.3; O2SAT 97; BMI 26.8
--- OUTSIDE RECORDS SUMMARY | 2024-09-22 18:34 | XMS_ITS | Data Portability ---
Author Organization [place] [facility], Allergy Address [address] [place] [id number] Care Team Providers Care Grain Operator Name Role Phone JIL HESTER Primary Care Provider [phone] Assessment No assessment recorded. 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 Medical [...] Updated DateTime 04/14/2024 165.1 cm 26.3 kg/m2 39538.59 g Thad Gustafson [place] - [facility] 04/14/2024 11:51:28 Social History None recorded. Functional Status None recorded. Mental Status None recorded. Family History Nothing Reported. Medical History No medical history recorded. Gynecological HistoryNo gynecological history recorded. Obstetrics History GPAL:G 0 P 0 0 0 0 Past Encounters Encounter ID Performer Location Encounter Start Date Encounter Closed Date Diagnosis/Indication Diagnosis SNOMED-CT Code Diagnosis ICD10 Code Diagnosis Note [id number] YEISON HODGSON MD [facility] [address] [id number] 04/14/2024 11:23:24 04/14/2024 12:07:09 Amygdalolith 3219954 J35.8 see below. Chronic tonsillitis [id number] [...] Perdomo Member ID Guarantor Name 04/14/2024 1 [facility] - HE[employer] NET PLAN (MEDICAID HMO) LENORA Gonzales [id number] Trice Gonzales Notes Date Note Type Note Provider Name and Address Organization Details Recorded Time 04/14/2024 text/html She has a history of tonsil stones for years. They occur almost every day. She removes the stones herself. She has social anxiety related to halitosis from the frequent tonsil stones. No strep. No snoring. Otherwise healthy. No bleeding problems. YEISON HODGSON MD [address] [place] [address], [place], [id number], [place] - [facility] 04/14/2024 12:13:49 OBGyn Episode No OBEpisode recorded.
== END 2024-09-22 16:39 | disposition home or self-care (01) ==
LOC: HO.HMCH 15:47
PROVIDERS: PCP Internal Medicine
DX: F41.1 Generalized anxiety disorder (principal); G56.22 Lesion of ulnar nerve, left upper limb; E80.4 Gilbert syndrome; E78.00 Pure hypercholesterolemia, unspecified; R76.8 Other specified abnormal immunological findings in serum; K75.81 Nonalcoholic steatohepatitis (NASH); K58.0 Irritable bowel syndrome with diarrhea; E66.3 Overweight; Z00.00 Encounter for general adult medical examination without abnormal findings; D47.2 Monoclonal gammopathy; N89.8 Other specified noninflammatory disorders of vagina; J35.1 Hypertrophy of tonsils; L30.9 Dermatitis, unspecified; J30.9 Allergic rhinitis, unspecified; B00.9 Herpesviral infection, unspecified

== ENCOUNTER 2024-09-24 08:56 | Outpatient (REF) | payer OTHER, SELFPAY ==
[2024-09-24 09:27] LABS: MANUAL DIFF FLAG NO
[2024-09-24 10:55] LABS: Basophils Absolute Auto 0.1 X10*3/uL (0.0-0.2); Basophils Percent Auto 0.7 % (0-2); Eosinophils Absolute Auto 0.1 X10*3/uL (0.0-0.4); Hematocrit 41.3 % (37.0-47.0); Hemoglobin 13.6 g/dl (12.0-16.0); Imm Gran Abs Auto 0.01 X10*3/uL (0.00-0.03); Imm Gran Pct Auto 0.1 % (0.0-0.4); Lymphocytes Absolute Auto 2.3 X10*3/uL (1.2-4.9); Lymphocytes Percent Auto 32.1 % (20-40); Mean Corpuscular HGB Conc 32.9 g/dl (31.0-35.0); Mean Corpuscular Hemoglobin 29.4 pg (27.0-33.0); Mean Corpuscular Volume 89.4 fL (80.0-98.0); Mean Platelet Volume 10.5 fL (9.4-12.3); Monocytes Absolute Auto 0.4 X10*3/uL (0.1-1.2); Monocytes Percent Auto 5.8 % (2-11); Neutrophils Absolute Auto 4.2 x10*3/uL (2.0-8.3); Neutrophils Percent Auto 59.3 % (45-73); Platelet Count 292 X10*3/uL (160-400); Red Blood Count 4.62 X10*6/uL (4.20-5.50); Red Cell Distribution Width 12.3 % (11.0-16.0); White Blood Count 7.1 X10*3/uL (4.8-10.8)
[2024-09-24 11:00] LABS: Appearance Urine Clear; Color Urine Yellow; Glucose Urine UA Negative (Negative); Leukocyte Esterase Urine Negative (Negative); Nitrite Urine Negative (Negative); PH 7.5 (5.0-9.0); Specific Gravity - Urine 1.015 (1.005-1.025); Urine Blood Negative (Negative); Urine Ketones Negative (Negative); Urine Protein Negative (Neg-Trace)
[2024-09-24 11:18] LABS: Estimated Average Glucose 103 mg/dL; Hemoglobin A1C 142.1094 umol/L; Hemoglobin A1c % 5.2 % (<6.0); Total Hemoglobin (HGBA1C) 4211.6478 umol/L
[2024-09-24 11:41] LABS: Alanine Aminotransferase 21 U/L (0-31); Albumin Level 3.9 g/dL (3.5-5.0); Alkaline Phosphatase 66 U/L (39-117); Anion Gap 9 (12-20); Aspartate Amino Transferase 20 U/L (5-31); Bilirubin Total 0.9 mg/dL (0.0-1.0); Blood Urea Nitrogen 14 mg/dL (9-16); Calcium 9.3 mg/dL (8.4-10.2); Carbon Dioxide 29 mmol/L (22-29); Chloride 105 mmol/L (96-108); Cholesterol 195 mg/dL (<200); Estimated Glomerular Filt Rate > 60; Glucose Random 91 mg/dL (60-115); HDL Cholesterol 42 mg/dL (>40); Iron 63 mcg/dL (30-160); LDL Cholesterol Calculated 135 mg/dL (<100); Percent Iron Saturation 21 % (15-50); Potassium 4.5 mmol/L (3.3-5.1); Sodium 138 mmol/L (135-145); Total Iron Binding Capacity 306 mcg/dL (228-428); Total Protein 8.1 g/dL (6.5-8.0); Triglycerides 90 mg/dL (<150); Unsaturated Iron Binding 243 ug/dL
[2024-09-24 11:59] LABS: Vitamin B12 353 pg/mL (200-900)
[2024-09-24 12:00] LABS: Folate 12.3 ng/mL (> or = 4.0); Free T4 (Free Thyroxine) 0.91 ng/dL (0.71-1.85); TSH reflex Free T4 1.98 uIU/mL (0.32-4.0); Vitamin D 25-OH Total 25.4 ng/mL (>30)
== END 2024-09-24 08:57 | disposition home or self-care (01) ==
LOC: HO.LAB 08:56
PROVIDERS: PCP Internal Medicine
DX: Z00.00 Encounter for general adult medical examination without abnormal findings (principal); Z13.1 Encounter for screening for diabetes mellitus; Z13.220 Encounter for screening for lipoid disorders; R35.89 Other polyuria; N92.6 Irregular menstruation, unspecified
CPT/HCPCS: 36415; 80053; 80061; 81003; 82306; 82607; 82746; 83036; 83540; 84439; 84443; 85025

== ENCOUNTER 2025-06-14 11:14 | Outpatient (AMB) | payer OTHER, SELFPAY ==
[2025-06-14 12:14] VITALS: BP 112/80; PULSE 88; O2SAT 98; BMI 26.5
--- NOTE | 2025-06-14 12:14 | MHC.PC.OV ---
Vital Signs 06/14/25 12:14 Height 5 ft 5 in Weight 159 lb 6 oz BMI 26.5 BP 112/80 Blood Pressure Location Lt brachial Position Sitting Pulse 88 Pulse Source Pulse Oximeter Pulse Oximetry (%) 98 Oxygen Delivery Method Room Air Intake Visit Reasons: b/l knee pain - requesting rheum referral Binding Folder Machine Required: No Accompanied by: Self / Same As Patient Allergies No Known Allergies Allergy (Verified 06/14/25 12:14) Medication List - Last Reconciled 06/14/25 by Sancho Jc MD fexofenadine (April Allergy) 180 mg PO DAILY fluticasone propionate 50 mcg/actuation 1 spray intranasal DAILY 7 days sennosides-docusate sodium 8.6-50 mg (Senna Plus) 1 tab-cap PO BEDTIME triamcinolone acetonide 0.5% 1 appl topical DAILY valacyclovir 1,000 mg PO DAILY Tobacco use date assessed: 06/14/25 Dental Screening Dental Screen Date: 06/14/25 Did you have a dental visit in the last 12 months?: Yes Did you have a dental problem in the last 6 months where you did not have access to dental care?: No Was dental information given to patient?: Patient has dentist HPI HPI Comments History of Present Illness Details History of Present Illness The patient is a 40 year old female presenting for a follow-up visit. Her medical history is significant for monoclonal gammopathy of undetermined significance (MGUS), irritable bowel syndrome (IBS), nonalcoholic steatohepatitis, positive rheumatoid factor, hypercholesterolemia, Gilbert's syndrome, and generalized anxiety disorder. For her MGUS, she is followed by hematology-oncology and is on an annual surveillance schedule. Regarding her IBS and FINLEY, she previously saw a open claims representative and reports her IBS symptoms have not been severe recently, but would like to re-establish care. Lab work from September 2024 was reviewed, showing a normal blood count with no anemia, normal electrolytes, and normal renal, liver, and glucose function. Her LDL cholesterol was 135 mg/dL in September, an increase from 104 mg/dL the prior year, and her vitamin D level was noted to be low. In April, she was seen by a colleague for ear pain and was treated for allergies and postnasal drip. She reports having a rash that she treats with hydrocortisone cream at home. Health Maintenance The patient received an influenza vaccine during the visit. She was reminded about the need for a mammogram for breast cancer screening. Her low vitamin D level was noted, and it will be re-evaluated with future lab work. Social History - Diet: The patient reports making dietary improvements, such as avoiding chicken skin and using plant-based butter to manage her cholesterol. Results - Labs from September 2024: - Complete Blood Count: Normal, with no anemia. - Comprehensive Metabolic Panel: Normal electrolytes, renal function, and blood sugar. - Liver Function Tests: Normal. - Lipid Panel: LDL cholesterol was 135 mg/dL. - Vitamin D: Low. - Iron: Normal. [facility] Medical History (Updated 06/14/25 @ 12:35 by Sancho Jc MD) COVID-19 virus infection Exposure to chlamydia Overweight (BMI 25.0-29.9) Rheumatoid factor positive Condyloma MARCO II (cervical intraepithelial neoplasia II) Hypercholesterolemia Insomnia Vitamin D deficiency Cervical dysplasia B12 deficiency Surgical History H/O cosmetic surgery Hx of tubal ligation History of loop electrical excision procedure (LEEP) Family History Father Liver cancer Hep C w/o coma, chronic Diabetes mellitus Family history of thyroid problem Paternal Aunt Breast cancer Maternal Grandmother Myocardial infarct Mother Osteoarthritis Gastritis Family/Other Breast cancer Family/Other Ovarian cancer Social History Household Members: Children Housing: Apartment Are you a primary weekend caregiver to a significant other at home: No Do you presently have visiting nurse or other home services: No Alcohol intake: former Patient Tobacco Use Status: Never used Tobacco Tobacco use type: Cigarette e-Cigarette/Vaping Use: Never Used Second Hand Smoke Exposure: No service: No Current occupational status: employed 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 1. Little interest or pleasure in doing things: several days 2. Feeling down, depressed, or hopeless: not at all 3. Trouble falling or staying asleep, or sleeping too much: several days 4. Feeling tired or having little energy: more than half the days 5. Poor appetite or overeating: several days 6. Feeling bad about yourself - or that you are a failure or have let yourself or your family down: several days 7. Trouble concentrating on things, such as reading the newspaper or watching television: several days 8. Moving or speaking so slowly that other people could have noticed. Or the opposite - being so fidgety or restless that you have been moving around a lot more than usual: not at all 9. Thoughts that you would be better off or of hurting yourself in some way: not at all Total score: 7 Source: Developed by Drs. Tommy Berg, Monica Ballesteros, Chris Nagy and colleagues, with an educational chepe from [employer] Thrive Questionnaire Date Thrive assessed: 06/14/25 I am a: Patient What is your living situation today?: I have a steady place to live Within the past 12 months, did the food you bought not last and you didn't have the money to get more?: Never true Within the past 12 months, did you worry whether your food would run out before you got money to buy more?: Never true Do you have trouble paying for medicines?: No Do you have trouble getting transportation to medical appointments?: No Do you have trouble paying your heating and electricity bill?: No Do you have trouble taking care of your child, family member or friend?: No Do you have trouble with day-to-day activities such as bathing, preparing meals, shopping, managing finances, etc.?: No Are you currently unemployed and looking for a job?: No Are you interested in more education?: No Currently or been in a relationship where the following occur: No concerns reported THRIVE Score: 0 AUDIT C Alcohol Use Questionnaire (AUDIT-C) 1. How often do you have a drink containing alcohol?: Never 3. How often do you have six or more drinks on one occasion?: Never Total Score: 0 Score Reviewed/Action Taken: Yes CRISTINO-7 AMB Questionnaire CRISTINO-7 Date CRISTINO - 7 assessed: 06/14/25 Feeling nervous, anxious, or on edge: 0 = Not at all Not being able to stop or control worryin = Not at all Worrying too much about different things: 0 = Not at all Trouble relaxin = Not at all Being so restless that it is hard to sit still: 0 = Not at all Becoming easily annoyed or irritable: 0 = Not at all Feeling afraid as if something awful might happen: 0 = Not at all Total CRISTINO-7 score (0-4 normal; 5-9 mild; 10-14 moderate; 15-21 severe): 0 Source: Developed by Drs. Tommy Berg, Monica Ballesteros, Chris Nagy and colleagues, with an educational chepe from [employer] Review of Systems Narrative Review of Systems - Integumentary: Reports a rash, which she identifies as eczema. - Gastrointestinal: Reports her irritable bowel syndrome symptoms have not been too bad. - Extremities: Denies swelling in the legs. Physical exam (Primary Care) Vital Signs: Last Vital Signs Pulse 88 06/14/25 12:14 BP 112/80 06/14/25 12:14 Pulse Ox 98 06/14/25 12:14 Oxygen Delivery Method Room Air 06/14/25 12:14 BMI result Body Mass Index 26.5 Tobacco/Smoking Status: Tobacco use Status Tobacco use date assessed 06/14/25 06/14/25 12:18 Patient Tobacco Use Status Never used Tobacco 06/14/25 12:18 Tobacco use type Cigarette 06/14/25 12:18 e-Cigarette/Vaping Use Never Used 06/14/25 12:18 PHQ-9: PHQ-9 Score PHQ-9: Total score 7 06/14/25 12:45 Thrive Assessment: Date of Thrive Assessment Date Thrive assessed 06/14/25 06/14/25 12:18 Currently or been in a relationship where the following occur: No concerns reported Narrative Physical Exam - Integumentary: Visible rash noted, consistent in appearance with eczema. - Cardiovascular: Heart auscultated. - Respiratory: Lungs auscultated, normal respiratory effort noted. - Extremities: No pedal edema noted. Const General: alert; No acute distress Eyes Conjunctivae: conjunctivae normal Resp Auscultation: clear to auscultation bilaterally Cardio Rate: regular rate Rhythm: regular rhythm GI Inspection: Yes normal to inspection Extrem General: Yes normal to inspection and No edema Office Procedures Flu Questionnaire Does the patient have a severe egg allergy?: No Does the patient have severe life threatening allergies?: No Does the patient have a fever or illness today?: No Has the patient ever had Guillain-Houston Syndrome?: No Has the patient ever had any past reaction to a flu shot?: No Immunizations Fluarix [id number] (PF) 45 mcg (15 mcg x 3)/0.5 mL IM syringe Performing Provider: Sancho Jc MD [facility] Administered by: Leesa Cherry RN on 06/14/25 12:50 Dose Route Admin Location Dispensed Lot Number Expiration Date [place] [employer] 0.5 mL IM Left Deltoid 0.5 mL [id number] 12/21/25 [id number] [email or web address] VIS Given Date VIS Provided VIS Publication Date 06/14/25 Single Vaccine 24 Eligibility Eligibility Date Funding Source Not [facility] Eligible 06/14/25 Private Coding Level of Care Code Est Pt Level 4 (93168) Add On Problem Visit Only Diagnoses Hypercholesterolemia E78.00 Breast cancer screening by mammogram Z06.23 MGUS (monoclonal gammopathy of unknown significance) D47.2 Rheumatoid factor positive R76.8 Acute constipation K59.00 Irritable bowel syndrome with diarrhea K58.0 Assessment & Plan Assessment & Plan (1) Hypercholesterolemia: Code(s): E78.00 - Pure hypercholesterolemia, unspecified Category: Medical Plan: Avoid fried foods, chicken skin, eggs, butter margarine, pastries and meat. Be it pork or beef they have a lot of cholesterol LDL goal of less than 130 and triglyceride of less than 150 (2) Breast cancer screening by mammogram: Code(s): Z. - Encounter for screening mammogram for malignant neoplasm of breast Category: Medical Plan: Patient is reminded about mammogram (3) MGUS (monoclonal gammopathy of unknown significance): Code(s): D47.2 - Monoclonal gammopathy Category: Medical Plan: Continue to follow-up yearly surveillance with the Hematology-Oncology (4) Rheumatoid factor positive: Comment: April 2019 Dr. Damon Code(s): R76.8 - Other specified abnormal immunological findings in serum Category: Medical (5) Acute constipation: Code(s): K59.00 - Constipation, unspecified Category: Medical (6) Irritable bowel syndrome with diarrhea: Code(s): K58.0 - Irritable bowel syndrome with diarrhea Category: Medical Plan Plan Patient was informed and verbally consented to the use of an ambient scribe for clinic note documentation during this visit. 1. Hypercholesterolemia The patient's LDL cholesterol was elevated at 135 mg/dL in September 2024, which is above the goal of <130 mg/dL. She reports making dietary changes to address this. A lab request for a fasting lipid panel was ordered to re-evaluate in 3-4 months. 2. Monoclonal Gammopathy Of Undetermined Significance The patient has a stable history of MGUS. She will continue with yearly surveillance with her hematology-net application support specialist. 3. Irritable Bowel Syndrome The patient reports her IBS symptoms have not been severe recently. A referral was placed to gastroenterology for follow-up as per her request. 4. Eczema A rash consistent with eczema was noted during the exam. The patient will continue to use her at-home hydrocortisone cream for treatment. Discussion Notes I reviewed the patient's history and lab work from September 2024, noting her normal blood count, kidney function, and liver function. I informed her that her LDL cholesterol had risen to 135, which is slightly above our goal of under 130. We discussed her ongoing dietary efforts, and I placed a lab order for a fasting lipid panel to be done in 3-4 months to monitor this. I also noted her vitamin D level was low. Per her request, I placed a referral to her open claims representative for IBS management. Regarding a rash she presented, I confirmed it appeared to be eczema, and she stated she has steroid cream at home to treat it. I reminded her to schedule her mammogram and she received her flu shot during the visit. I advised her to contact me with any interval concerns. Patient Instructions - Continue your dietary changes to help lower your cholesterol. - Please go to the lab for a fasting blood test in about 3 to 4 months to recheck your cholesterol levels. - Use the hydrocortisone cream you have at home for your skin rash as needed. - A referral has been made to your open claims representative (gut doctor) for follow-up on your IBS. - Please schedule your mammogram for breast cancer screening. - Continue to see your hematology-net application support specialist once a year for your MGUS. - You received your flu shot today in our office. - Please contact us if you have any questions or new concerns. Orders: Orders Complete Blood Count Auto Diff 3 Months E78.00 - Pure hypercholesterolemia, unspecified Comprehensive Met. Panel 3 Months E78.00 - Pure hypercholesterolemia, unspecified Vitamin B12 and Folate 3 Months E78.00 - Pure hypercholesterolemia, unspecified Vitamin D 25-OH Total 3 Months E78.00 - Pure hypercholesterolemia, unspecified Erythrocyte Sedimentation Rate 3 Months E78.00 - Pure hypercholesterolemia, unspecified C Reactive Protein 3 Months E78.00 - Pure hypercholesterolemia, unspecified Influenza [id number] Immunization Today Z23 - Encounter for immunization Free T4 (Free Thyroxine) 3 Months E78.00 - Pure hypercholesterolemia, unspecified Thyroid Stimulating Hormone 3 Months E78.00 - Pure hypercholesterolemia, unspecified Lipid Panel 3 Months E78.00 - Pure hypercholesterolemia, unspecified Magnesium 3 Months E78.00 - Pure hypercholesterolemia, unspecified Hemoglobin A1c 3 Months E78.00 - Pure hypercholesterolemia, unspecified Referrals Rheumatology Referral R76.8 - Other specified abnormal immunological findings in serum Gastroenterology Referral K58.0 - Irritable bowel syndrome with diarrhea Medications: New sennosides-docusate sodium 8.6-50 mg (Senna Plus) 1 tab-cap PO BEDTIME 60 tabs 3RF K59.00 - Constipation, unspecified
--- OUTSIDE RECORDS SUMMARY | 2025-06-14 14:21 | XMS_ITS | Data Portability ---
Author Organization [place] - [facility], Allergy Address [address] [place] [phone] Care Team Providers Care Continuous Washer Operator Name Role Phone MIRJIL Primary Care Provider [phone] Assessment No assessment recorded. 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 [...] Updated DateTime 04/14/2024 165.1 cm 26.3 kg/m2 75630.59 g Thad Gustafson [place] - [facility] 04/14/2024 11:51:28 Social History None recorded. Functional Status None recorded. Mental Status None recorded. Family History Nothing Reported. Medical History No medical history recorded. Gynecological HistoryNo gynecological history recorded. Obstetrics History GPAL:G 0 P 0 0 0 0 Past Encounters Encounter ID Performer Location Encounter Start Date Encounter Closed Date Diagnosis/Indication Diagnosis SNOMED-CT Code Diagnosis ICD10 Code Diagnosis IMO Codes Diagnosis Note [id number] YEISON HODGSON MD [facility] [address] [phone] 04/14/2024 11:23:24 04/14/2024 12:07:09 Amygdalolith 9777024 J35.8 see below. Chronic tonsillitis 9097 9004 [...] Recorded Advance Directives Directive None Recorded Payers Insurance Date Sequence Insurance Name Policy Number Policy Perdomo Covered Member ID Perdomo Member ID Guarantor Name 04/29/2024 1 [facility] PLAN (MEDICAID HMO) LENORA Gonzales [id number] Trice Gonzales Notes Date Note Type Note Provider Name and Address Organization Details Recorded Time 04/14/2024 text/html ROS as noted in the HPI She has a history of tonsil stones for years. They occur almost every day. She removes the stones herself. She has social anxiety related to halitosis from the frequent tonsil stones. No strep. No snoring. Otherwise healthy. No bleeding problems. YEISON HODGSON MD [address] [place] [address], [place], [phone], [facility] - [facility] 04/14/2024 12:13:49 OBGyn Episode No OBEpisode recorded.
--- OUTSIDE RECORDS SUMMARY | 2025-06-14 14:21 | XMS_ITS | Clinical Summary ---
Author Organization [facility] Address [address] [place] [phone] Phone Care Team Providers Care Marina Dry Dock Manager Name Role Phone Sancho Jc MD Primary Care Provider Arabella Ortiz PA-C Unavailable Gloria Hernandez Unavailable [phone] Allergies No known active allergies Medications No known medications Encounters Date Type Department Care Team Description 03/17/2025 2:00 PM EDT Office Visit [facility] at [address] [address] Gloria Hernandez MBBS MGUS (monoclonal gammopathy of unknown significance) (Primary Dx) from Last 3 Months Immunizations No known immunizations Social History Tobacco Use Types Packs/Day Years Used Date Smoking Tobacco: Never Smokeless Tobacco: Never Tobacco Cessation:Counseling Given: Not Answered Alcohol Use Standard Drinks/Week Comments Never 0 (1 standard drink = 0.6 oz pur e alcohol) Education Answer Date Recorded Are you interested in more education? Not on isak e 12/10/2023 Are you concerned about learning? Not on file 12/10/2023 No 12/10/2023 No 12/10/2023 Digital Access Answer Date Recorded No 12/10/2023 No 12/10/2023 Reliable internet access at home? Not on file 12/10/2023 Device with a working camera? Not on file Comments Unknown Sex and Gender Information Value Date Recorded Sex Assigned at Not on file Legal Sex Female 11:57 AM EDT Gender Identity Not on file Sexual Orientation Not on file Last Filed Vital Signs Vital Sign Reading Time Taken Comments Blood Pressure 110/74 03/17/2025 2:09 PM EDT Pulse 69 03/17/2025 2:09 PM EDT Temperature 36.8 C (98.2 F) 03/17/2025 2:09 PM EDT Respiratory Rate - - Oxygen Saturation 99% 03/17/2025 2:09 PM EDT Inhaled Oxygen Concentration - - Weight 71.4 kg (157 lb 6.4 oz) 03/17/2025 2:07 P M EDT Height 165.1 cm (5' 5 ) 03/17/2025 2:07 PM EDT Body Mass Index 26.19 03/17/2025 2:07 PM EDT Plan of Treatment Upcoming Encounters Date Type Department Care Team (Late st Contact Info) Description 03/17/2026 3:20 PM EDT Blood Draw [facility] [address] [place] [address] Gloria Hernandez MBBS [address] [place] [phone] 03/23/2026 3:30 PM EDT Office Visit [facility] at [address] [address] Gloria Hernandez MBBS [address] [place] [address] Health Maintenance Due Date Last Done Comments DEPRESSION SCREENING 1997 HEPATITIS C SCREENING 2003 HIV ONE-TIME SCREENING (18-65 YEARS) 2003 PAP SMEAR 2006 INFLUENZA VACCINE (#1) 2025 , 04/10/2023, 03/29/2022, Additional history exists MAMMOGRAM 2025 COVID-19 VACCINE ( season) 2025 09/24/2020 Adult Td,Tdap Booster 09/27/2026 09/27/2016 SCREENING FOR DIABETES 01/21/2027 01/22/2024 SMOKING STATUS SCREENING (Once After 26 Yrs) Completed 03/17/2025 HEPATITIS A VACCINES Aged Out No long er eligible based on patient's age to complete this topic HIB VACCINES Aged Out No longer eligi ble based on patient's age to complete this topic MENINGOCOCCAL VACCINES (ACWY) Aged Out No longer eligible based on patient's age to complete this topic MENINGOCOCCAL VACCINES (B) Aged Out N o longer eligible based on patient's age to complete this topic PNEUMOCOCCAL VACCINES (0-49 years) Aged Out No longer eligible based on patient's age to complete this topic Medical Devices Not on [place] [address] [place] [address] [place] [address] [place] [address] [place] [address] [place] [address] [place] [address] [place] [address] [place] [address] [place] [address] ACO Care Teams Marina Dry Dock Manager Relationship Specialty Start Date End Date Hosea Sancho Wild MD [address] [place] [address] [address] [place] [phone] PCP - General Internal Medicine 12/09/23 Arabella Ortiz PA-C [address] [place] [phone] Physician Technical Intern 12/10/23 Gloria Hernandez MBBS [address] [place] [phone] Medical Oncology 03/10/25 Additional Source Comments The information contained in this document represents components of the legal health record. It is not the complete legal health record.[facility]
== END 2025-06-14 13:00 | disposition home or self-care (01) ==
LOC: HO.HMCH 11:15
PROVIDERS: PCP Internal Medicine; Visit Provider Internal Medicine
DX: E78.00 Pure hypercholesterolemia, unspecified (principal); Z12.31 Encounter for screening mammogram for malignant neoplasm of breast; D47.2 Monoclonal gammopathy; R76.89 Other specified abnormal immunological findings in serum; K59.00 Constipation, unspecified; K58.0 Irritable bowel syndrome with diarrhea; Z23 Encounter for immunization

== ENCOUNTER → 2025-06-14 11:14 | Outpatient (BNVA) | payer OTHER, SELFPAY | PROVIDERS: PCP Internal Medicine; Visit Provider Internal Medicine | DX: D47.2 Monoclonal gammopathy (principal); E78.00 Pure hypercholesterolemia, unspecified; R76.89 Other specified abnormal immunological findings in serum; K59.00 Constipation, unspecified; K58.0 Irritable bowel syndrome with diarrhea; Z23 Encounter for immunization; Z13.31 Encounter for screening for depression; Z13.39 Encounter for screening examination for other mental health and behavioral disorders | CPT/HCPCS: 90471; 90656; 96127; 99212 ==

== ENCOUNTER 2025-06-19 09:53 | Outpatient (REF) | payer OTHER, SELFPAY ==
--- NOTE | ~2025-06-19 | MM_ITS ---
EXAMINATION: MM SCREENING DIGITAL BREAST TOMOSYNTHESIS, BILATERAL CLINICAL INFORMATION: Screening. Asymptomatic. COMPARISON: Mammography: Baseline. TECHNIQUE: Digital breast mammography with tomosynthesis is performed in both the craniocaudal and mediolateral oblique views along with computer-aided detection (CAD). FINDINGS: The breasts are heterogeneously dense, which may obscure small masses. There are no significant masses, abnormal calcifications, or other abnormalities. MM/MM tomosynthesis screening BI IMPRESSION: No mammographic evidence of malignancy. ASSESSMENT: BI-RADS Category 1: Negative RECOMMENDATION: Routine annual mammography screening. 1 year F/U This examination should not preclude the clinical evaluation of a suspicious palpable abnormality. This patient's information was entered into a reminder system with a target due date for their next mammogram. Electronically signed by: Maria Houston DO 06/21/2025 09:18 AM KARINE
--- OUTSIDE RECORDS SUMMARY | 2025-06-19 09:56 | XMS_ITS | Clinical Summary ---
Author Organization [facility] Address [address] [place] [address] Phone Care Team Providers Care Oracle Technical Developer Name Role Phone Sancoh Jc MD Primary Care Provider [phone] Arabella Ortiz PA-C Unavailable Gloria Hernandez Unavailable [phone] Allergies No known active allergies Medications No known medications Immunizations No known immunizations Social History Tobacco [...] 3:20 PM EDT Blood Draw [facility] [address] [place] [address] Gloria Hernandez MBBS [address] [place] [phone] 03/23/2026 3:30 PM EDT Office Visit [facility] [address] [place] [address] Gloria Hernandez MBBS [address] [place] [phone] [email or web address] Health Maintenance Due Date Last Done Comments [...] topic Medical Devices Not on [place] [address] [place] [address] [facility] [place] [address] [place] [address] [place] [address] [place] [address] [place] [address] [place] [address] ACO Care Teams Oracle Technical Developer Relationship Specialty Start Date End Date Sancho Jc MD [address] [place] [address] Drive [address] [place] [phone] PCP - General Internal Medicine 12/09/23 Arabella Ortiz PA-C [address] [place] [phone] [email or web address] Physician Informatics Nurse Specialist 12/10/23 Gloria Hernandez MBBS [address] [place] [phone] Medical Oncology 03/10/25 Additional Source Comments The information contained in this document represents components of the legal health record. It is not the complete legal health record.[facility]
--- OUTSIDE RECORDS SUMMARY | 2025-06-19 09:56 | XMS_ITS | Data Portability ---
Author Organization [place] - [facility], Allergy Address [address] [place] [id number] Care Team Providers Care Glove Operator Name Role Phone MIRJIL Primary Care Provider [phone] Assessment No assessment recorded. Plan of Treatment [...] and Address Organization Details Recorded Time Amygdalolith 2169955 Active 2023 YEISON Matthew MD [address] [place] [address], [phone] [place] [address] [facility] 4 12:12:40 Chronic tonsillitis [id number] Active 2023 YEISON Matthew MD [address] [place] [address], [phone] [place] [address] [facility] 4 12:12:44 Problem Notes None recorded. [...] Updated DateTime 04/14/2024 165.1 cm 26.3 kg/m2 31003.59 g Thad Gustafson [place] - [facility] 04/14/2024 11:51:28 Social History None recorded. Functional Status None recorded. Mental Status None recorded. Family History Nothing Reported. Medical History No medical history recorded. Gynecological HistoryNo gynecological history recorded. Obstetrics History GPAL:G 0 P 0 0 0 0 Past Encounters Encounter ID Performer Location Encounter Start Date Encounter Closed Date Diagnosis/Indication Diagnosis SNOMED-CT Code Diagnosis ICD10 Code Diagnosis IMO Codes Diagnosis Note [id number] YEISON HODGSON MD [facility] [address] [address] 04/14/2024 11:23:24 04/14/2024 12:07:09 Amygdalolith 5922056 J35.8 see below. Chronic tonsillitis [id number] [...] Perdomo Member ID Guarantor Name 04/29/2024 1 [facility] [employer] (MEDICAID HMO) LENORA Gonzales [id number] Trice Gonzales Notes Date Note Type Note [...] healthy. No bleeding problems. YEISON HODGSON MD [address] [place] [address], [place], [phone], [facility] - [facility] 04/14/2024 12:13:49 OBGyn Episode No OBEpisode recorded.
== END 2025-06-19 09:54 | disposition home or self-care (01) ==
LOC: HO.MAMMO 09:53
PROVIDERS: PCP Internal Medicine; Visit Provider Advanced Practice Midwife
DX: Z12.31 Encounter for screening mammogram for malignant neoplasm of breast (principal)
CPT/HCPCS: 77063; 77067

== ENCOUNTER → 2025-06-19 10:00 | Outpatient (BNV) | payer OTHER, SELFPAY | PROVIDERS: PCP Internal Medicine; Visit Provider Internal Medicine | DX: Z12.31 Encounter for screening mammogram for malignant neoplasm of breast (principal) | CPT/HCPCS: 77063; 77067 ==